=== PATIENT | female | born 1985 | race Caucasian/White ===

== ENCOUNTER 2019-08-18 10:16 | Outpatient (CLI) | payer OTHER, SELFPAY ==
[2019-08-18 10:30] LABS: Basophils Percent Auto 0.6 % (0.2-1.2); Eosinophils Absolute Auto 0.4 K/mm3 (0-0.3); Eosinophils Percent Auto 6.4 % (0-4.4); Hematocrit 37.3 % (37.0-47.0); Hemoglobin 11.8 g/dL (12.0-15.0); Immature Granulocyte Absolute 0.02 K/mm3 (0.00-0.031); Immature Granulocyte Percent A 0.3 % (0-0.5); Lymphocytes Absolute Auto 1.83 K/mm3 (0.9-3.2); Lymphocytes Percent Auto 29.2 % (18.3-44.2); Mean Corpuscular HGB Conc 31.6 g/dl (32-36); Mean Corpuscular Hemoglobin 28.6 pg (26-34); Mean Corpuscular Volume 90.5 fl (80-100); Mean Platelet Volume 9.9 fl (7.4-10.4); Monocytes Absolute Auto 0.6 K/mm3 (0.1-0.6); Monocytes Percent Auto 9.4 % (2.6-8.5); Neutrophils Absolute Auto 3.4 K/mm3 (1.3-6.7); Neutrophils Percent Auto 54.1 % (45.5-73.1); Platelet Count Result 232 k/mm3 (150-375); Red Blood Count 4.12 M/mm3 (4.2-5.4); Red Cell Distribution Width 12.3 % (11.5-14.5); White Blood Count 6.3 K/mm3 (4.5-10.0)
[2019-08-18 15:23] LABS: Iron 109 ug/dL (37-170)
[2019-08-18 15:32] LABS: Percent Iron Saturation 26 % (20-50)
[2019-08-18 17:10] LABS: Ferritin 5.92 ng/mL (6.24-137)
== END 2019-08-18 10:17 | disposition home or self-care (01) ==
LOC: ANHLAB 10:17
PROVIDERS: Visit Provider Internal Medicine Hematology & Oncology
DX: D50.9 Iron deficiency anemia, unspecified (principal)
CPT/HCPCS: 36415; 82728; 83540; 83550; 85025

== ENCOUNTER 2020-02-03 12:16 | Outpatient (NON) | payer OTHER, SELFPAY ==
[2020-02-04 22:36] LABS: SARS-CoV-2 RNA PCR Negative
== END 2020-02-03 12:17 ==
PROVIDERS: Visit Provider Student in an Organized Health Care Education/Training Program
DX: Z20.828 Contact with and (suspected) exposure to other viral communicable diseases (principal)
CPT/HCPCS: 87635; C9803; U0003

== ENCOUNTER 2020-03-01 14:29 | Outpatient (CLI) | payer OTHER, SELFPAY ==
[2020-03-01 14:43] LABS: Basophils Percent Auto 0.4 % (0.2-1.2); Eosinophils Absolute Auto 0.3 K/mm3 (0-0.3); Eosinophils Percent Auto 3.4 % (0-4.4); Hematocrit 40.4 % (37.0-47.0); Hemoglobin 13.2 g/dL (12.0-15.0); Immature Granulocyte Absolute 0.03 K/mm3 (0.00-0.031); Immature Granulocyte Percent A 0.4 % (0-0.5); Lymphocytes Absolute Auto 2.02 K/mm3 (0.9-3.2); Lymphocytes Percent Auto 27.7 % (18.3-44.2); Mean Corpuscular HGB Conc 32.7 g/dl (32-36); Mean Corpuscular Volume 94.8 fl (80-100); Mean Platelet Volume 9.9 fl (7.4-10.4); Monocytes Absolute Auto 0.6 K/mm3 (0.1-0.6); Neutrophils Absolute Auto 4.4 K/mm3 (1.3-6.7); Neutrophils Percent Auto 60.1 % (45.5-73.1); Platelet Count Result 217 k/mm3 (150-375); Red Blood Count 4.26 M/mm3 (4.2-5.4); Red Cell Distribution Width 11.8 % (11.5-14.5); White Blood Count 7.3 K/mm3 (4.5-10.0)
[2020-03-01 17:30] LABS: Iron 47 ug/dL (37-170)
[2020-03-01 17:33] LABS: Anion Gap 7 mmol/L (8-16); Blood Urea Nitrogen 6 mg/dL (7-17); Calcium 9.4 mg/dL (8.4-10.2); Carbon Dioxide 29 mmol/L (22-30); Chloride 102 mmol/L (98-107); Estimated Glomerular Filt Rate > 60; Glucose 182 mg/dL (65-105); Potassium 4.6 mmol/L (3.4-5.0); Sodium 138 mmol/L (137-145)
[2020-03-01 17:43] LABS: Percent Iron Saturation 13 % (20-50)
[2020-03-01 18:40] LABS: Folic Acid 12.8 ng/mL (2.76->20)
== END 2020-03-01 14:30 | disposition home or self-care (01) ==
PROVIDERS: Visit Provider Internal Medicine Hematology & Oncology
DX: D50.9 Iron deficiency anemia, unspecified (principal)
CPT/HCPCS: 36415; 80048; 82607; 82728; 82746; 83540; 83550; 85025

== ENCOUNTER 2020-07-02 13:22 | Outpatient (CLI) | payer OTHER, SELFPAY ==
[2020-07-02 13:51] LABS: Basophils Percent Auto 0.4 % (0.2-1.2); Eosinophils Absolute Auto 0.5 K/mm3 (0-0.3); Eosinophils Percent Auto 6.3 % (0-4.4); Hemoglobin 12.7 g/dL (12.0-15.0); Immature Granulocyte Absolute 0.01 K/mm3 (0.00-0.031); Immature Granulocyte Percent A 0.1 % (0-0.5); Lymphocytes Absolute Auto 2.13 K/mm3 (0.9-3.2); Lymphocytes Percent Auto 28.1 % (18.3-44.2); Mean Corpuscular HGB Conc 32.6 g/dl (32-36); Mean Corpuscular Hemoglobin 30.2 pg (26-34); Mean Corpuscular Volume 92.6 fl (80-100); Monocytes Absolute Auto 0.6 K/mm3 (0.1-0.6); Monocytes Percent Auto 7.4 % (2.6-8.5); Neutrophils Absolute Auto 4.4 K/mm3 (1.3-6.7); Neutrophils Percent Auto 57.7 % (45.5-73.1); Platelet Count Result 267 k/mm3 (150-375); Red Blood Count 4.21 M/mm3 (4.2-5.4); Red Cell Distribution Width 11.9 % (11.5-14.5); White Blood Count 7.6 K/mm3 (4.5-10.0)
[2020-07-02 14:14] LABS: Anion Gap 5 mmol/L (8-16); Blood Urea Nitrogen 9 mg/dL (7-17); Carbon Dioxide 28 mmol/L (22-30); Chloride 106 mmol/L (98-107); Estimated Glomerular Filt Rate > 60; Glucose 160 mg/dL (65-105); Potassium 4.5 mmol/L (3.4-5.0); Sodium 139 mmol/L (137-145)
[2020-07-02 16:17] LABS: Iron 44 ug/dL (37-170)
[2020-07-02 16:36] LABS: Percent Iron Saturation 12 % (20-50)
[2020-07-02 17:06] LABS: Ferritin 6.14 ng/mL (6.24-137)
== END 2020-07-02 13:23 | disposition home or self-care (01) ==
PROVIDERS: Visit Provider Internal Medicine Hematology & Oncology
DX: D50.9 Iron deficiency anemia, unspecified (principal)
CPT/HCPCS: 36415; 80048; 82728; 83540; 83550; 85025

== ENCOUNTER → 2020-09-21 13:01 | Outpatient (CLI) | payer OTHER, SELFPAY ==
--- NOTE | ~2020-09-21 | US_ITS ---
EXAMINATION: US pelvic complete DATE: 09/21/2020 13:47 INDICATION: Pelvic pain and cramping. History of polycystic ovarian syndrome. Comparison:No prior studies for comparison. TECHNIQUE: Multiple transabdominal and endovaginal sonographic images of the pelvis performed. FINDINGS: The uterus measures 11.2 x 3.8 x 5.9 cm. There is an IUD in the endometrium. The endometria l complex measures 3 mm. The right ovary measures 2.9 x 1.7 x 2.6 cm and the left ovary measures 3.8 x 2.6 x 3.4 cm. There ar e small follicles in each ovary. Normal doppler signal in both ovaries. There is no free fluid in the pelvis. There are no abnormal masses seen on either side. IMPRESSION: 1. Unremarkable pelvic ultrasound. IUD in expected position. Reviewed, dictated and finalized at location B.
== END ==
PROVIDERS: PCP Student in an Organized Health Care Education/Training Program; Visit Provider Obstetrics & Gynecology Gynecology
DX: R10.2 Pelvic and perineal pain (principal); Z97.5 Presence of (intrauterine) contraceptive device
CPT/HCPCS: 76856

== ENCOUNTER → 2020-11-19 11:54 | Outpatient (CLI) | payer OTHER, SELFPAY ==
--- NOTE | ~2020-11-19 | US_ITS ---
EXAMINATION: US breast RT limited HISTORY: Palpable lump at the 6:00 location of the right breast TECHNIQUE: Targeted right breast ultrasound is performed. FINDINGS: There is no evidence of focal abnormal cystic or solid mass in the vicinity of the reported palpable abnormality of concern. IMPRESSION: No specific sonographic correlate is identified for the reported palpable abnormality of concern. Fur ther evaluation at this time should be based on clinical assessment. Continued follow-up physical exa mination is recommended. BI-RADS Category 1: Negative Reviewed, dictated and finalized at location A. IMPRESSION: No specific sonographic correlate is identified for the reported palpable abnor mality of concern. Further evaluation at this time should be based on clinical assessment. Continued follow-up physical examination is recommended. BI-RADS Category 1: Negative
== END ==
PROVIDERS: Visit Provider Nurse Practitioner
DX: N63.15 Unspecified lump in the right breast, overlapping quadrants (principal)
CPT/HCPCS: 76642

== ENCOUNTER → 2020-11-26 03:57 | Outpatient (CLI) | payer OTHER, SELFPAY ==
[2020-11-26 18:23] LABS: SARS-CoV-2 RNA PCR Negative
== END ==
PROVIDERS: PCP Student in an Organized Health Care Education/Training Program; Visit Provider Student in an Organized Health Care Education/Training Program
DX: R53.83 Other fatigue (principal); R07.89 Other chest pain; R07.0 Pain in throat; Z20.822 Contact with and (suspected) exposure to COVID-19
CPT/HCPCS: C9803; U0003; U0005

== ENCOUNTER 2020-12-06 09:38 | Emergency (ER) | payer OTHER, SELFPAY ==
--- NOTE | ~2020-12-06 | XR_ITS ---
EXAMINATION: XR chest 2V DATE: 12/06/2020 10:40 INDICATION: Cough and congestion. TECHNIQUE: PA and lateral views of the chest were obtained. COMPARISON: None FINDINGS: The lungs are clear with no focal airspace opacities, pulmonary edema, pleural effusion or pneumothor ax. The cardiomediastinal silhouette is normal. Mild upper thoracic levocurvature. Surgical clips in the upper abdomen. IMPRESSION: 1. No acute cardiopulmonary disease. Reviewed, dictated and finalized at location A.
[2020-12-06 09:48] VITALS: BP 104/71; PULSE 94; RESP 18; TEMP 36.5; O2SAT 99
--- NOTE | 2020-12-06 10:23 | ED.URI ---
HPI - URI/Sore Throat General Chief Complaint: Upper Respiratory Infection Stated Complaint: Cough,Congestion Time Seen by Provider: 12/06/20 10:23 Source: patient and RN notes reviewed Mode of arrival: ambulatory Limitations: no limitations History of Present Illness HPI Narrative: 35-year-old female presents to the [facility] with complaints of cough and congestion. Patient reports that Sunday she started with a sore throat. Has been taking Tylenol Cold and flu. Has been using her albuterol. Minimal to no relief. Patient states that November 21 her son was sick, did test negative at that time and was on azithromycin and prednisone. Related Data Home Medications Medication Instructions Recorded Confirmed acetaminophen [Tylenol] 325 mg PO ONCE PRN 09/12/19 07/22/20 albuterol sulfate 1 inh INHALATION QID PRN 09/12/19 07/22/20 metformin 1,000 mg PO BID 09/12/19 07/22/20 ynynoujg-lil-[id number] fumarate 9 mg PO DAILY 09/12/19 07/22/20 [Multi Vitamin] Allergies Allergy/AdvReac Type Severity Reaction Status Date / Time No Known Allergies Allergy Verified 07/15/20 14:11 Review of Systems Review of Systems: All systems reviewed & are unremarkable except as noted in HPI and below Constitutional: Constitutional: Reports no additional constitutional complaints, Denies chills and Denies fever(s) Eyes: Eyes: Reports no additional eye complaints ENT: Reports as per HPI and Reports sore throat (Sunday and Sunday) Cardiovascular: Cardiovascular: Reports no additional cardiovascular complaints and Denies chest pain Respiratory: Respiratory: Reports as per HPI, Denies chest congestion, Reports cough, Denies dyspnea and Denies wheezing Gastrointestinal: Gastrointestinal: Reports no additional gastrointestinal complaints, Denies abdominal pain, Denies nausea and Denies vomiting Genitourinary: Genitourinary: Reports no additional female genitourinary complaints Musculoskeletal: Musculoskeletal: Reports no additional musculoskeletal complaints Integumentary/Breasts: Skin/Breast: Reports system reviewed and no additional complaints, except as docu Neurologic: Reports system reviewed and no additional complaints, except as documented Psychiatric: Psychiatric: Reports no additional psychiatric complaints Allergic/Immunologic: Allergic/Immunologic: Reports no additional allergic/immunologic complaints PMFSH Past Medical History Medical History Asthma Diabetes Surgical History Surgical History H/O gastric bypass 2014 Comments At the time of my signature, I reviewed and agree with the nursing past medical, surgical, social, and family history. There is no relevant family history pertinent to the patient complaint. Exam Const: General: healthy appearing, no acute distress and alert Nutritional Appearance: well nourished and obese Orientation/consciousness: patient oriented x3 Limitations: no limitations HENMT: Head: normal to inspection Ears: external ears normal, TM's normal bilaterally and EAC's normal Eyes: Conjunctivae: conjunctivae normal Pupils: Equal, round and reactive pupils present Neck: Neck: normal visual inspection, no lymphadenopathy and no meningeal signs Chest: Chest palpation & inspection: normal inspection of the chest Resp: Effort & Inspection: normal respiratory effort Auscultation: diminished lung sounds on the right in the lower lung johnson Cardio: Rate: regular rate Rhythm: regular rhythm : General: Yes no CVA tenderness Back/Spine/Pelvis: Back: no CVA tenderness Skin: General skin exam: normal color Rashes: no rashes Wounds: no wounds Neuro: General: patient oriented x3, moves all extremities, no meningeal signs and no focal motor deficits Speech: normal speech Gait exam (Neuro): Normal gait present Course Course Emergency Course: 1120: Reexamined patient. Lungs now clear
[2020-12-06 10:40] VITALS: PULSE 94; RESP 18; O2SAT 99
[2020-12-06] MEDS: ALBUTEROL SULFATE NEB 2.5 MG/3 ML INH INHALATION (10:47)
[2020-12-06] MEDS: IPRATROPIUM BR 0.02% INH SOLN 0.5 MG/2.5 ML VIAL INHALATION (10:49)
[2020-12-06 11:20] VITALS: PULSE 112; RESP 18; O2SAT 97
[2020-12-07 19:51] LABS: SARS-CoV-2 RNA PCR Negative
== END 2020-12-06 11:24 | disposition home or self-care (01) ==
PROVIDERS: Emergency Provider Nurse Practitioner; PCP Student in an Organized Health Care Education/Training Program
DX: J40 Bronchitis, not specified as acute or chronic (principal); E11.9 Type 2 diabetes mellitus without complications; Z20.822 Contact with and (suspected) exposure to COVID-19; Z79.84 Long term (current) use of oral hypoglycemic drugs
CPT/HCPCS: 71046; 87081; 87880; 94640; 99213; C9803; G0463; U0003; U0005

== ENCOUNTER → 2021-04-26 08:19 | Outpatient (CLI) | payer OTHER, SELFPAY ==
[2021-04-26 19:07] LABS: SARS-CoV-2 RNA PCR Positive
== END ==
PROVIDERS: PCP Student in an Organized Health Care Education/Training Program; Visit Provider Student in an Organized Health Care Education/Training Program
DX: U07.1 COVID-19 (principal)
CPT/HCPCS: C9803; U0003; U0005

== ENCOUNTER 2021-06-03 12:34 | Emergency (ER) | payer OTHER, SELFPAY ==
--- NOTE | ~2021-06-03 | XR_ITS ---
EXAMINATION: XR knee LT 3V DATE: 06/03/2021 13:35 INDICATION: Left knee popped. TECHNIQUE: 3 views of left knee were obtained. COMPARISON: None. FINDINGS: Bone alignment is normal. No fracture. Joint spaces are well maintained. There is no knee j oint effusion. IMPRESSION: 1. Normal left knee. Reviewed, dictated and finalized at location A. O TECHNICIAN IMPRESSION: 1. Normal left knee.
[2021-06-03 13:01] VITALS: BP 129/71; PULSE 95; RESP 18; TEMP 36.7; O2SAT 100
--- NOTE | 2021-06-03 14:51 | ED.LOWEXIN ---
HPI - Extremity Injury (Lower) General Chief Complaint: Extremity Injury, Lower <Serena Horvath PA-C - Last Filed: 06/03/21 14:59> Stated Complaint: knee pain <SERGIO Craven Last Filed: 06/03/21 14:59> Time Seen by Provider: 06/03/21 14:17 <SERGIO Craven Last Filed: 06/03/21 14:59> Source: patient <SERGIO Craven Last Filed: 06/03/21 14:59> Mode of arrival: wheelchair <SERGIO Craven Last Filed: 06/03/21 14:59> Limitations: no limitations <SERGIO Craven Last Filed: 06/03/21 14:59> History of Present Illness HPI Narrative: This is a 35-year-old female that presents to the emergency department for left knee pain after an injury a week ago. Reports she was bent down, when she stood up she felt a pop in the left knee. Reports history of previous partial patellar tendon tear in this knee. Reports decreased range of motion due to pain. Denies numbness. <SERGIO Craven Last Filed: 06/03/21 14:59> Related Data Home Medications: Home Medications Medication Instructions Recorded Confirmed acetaminophen [Tylenol] 325 mg PO ONCE PRN 09/12/19 07/22/20 albuterol sulfate 1 inh INHALATION QID PRN 09/12/19 07/22/20 metformin 1,000 mg PO BID 09/12/19 07/22/20 jpwxwlof-ycc-fnrnsqb fumarate 9 mg PO DAILY 09/12/19 07/22/20 [Multi Vitamin] semaglutide 0.25 mg SUBCUT WEEKLY 06/02/21 <SERGIO Craven Last Filed: 06/03/21 14:59> Allergies/Adverse Reactions: Allergies Allergy/AdvReac Type Severity Reaction Status Date / Time No Known Allergies Allergy Verified 06/02/21 14:34 <SERGIO Craven Last Filed: 06/03/21 14:59> Review of Systems Review of Systems: CONSTITUTIONAL: Denies fever MUSCULOSKELETAL: Reports joint pain, and myalgia. NEUROLOGIC: Denies numbness <Serena Horvath PA-C - Last Filed: 06/03/21 14:59> All systems reviewed & are unremarkable except as noted in HPI and below <Serena Horvath PA-C - Last Filed: 06/03/21 14:59> PMFSH Past Medical History Medical History: Medical History (Updated 06/03/21 @ 14:57 by Serena Horvath PA-C) Asthma Diabetes <Serena Horvath PA-C - Last Filed: 06/03/21 14:59> Surgical History Surgical History: Surgical History (Updated 06/02/21 @ 14:47 by Danika Fernandez) H/O gastric bypass 2014 H/O oral surgery (~2017) History of 2010 and 2015 History of cholecystectomy 2014 <Serena Horvath PA-C - Last Filed: 06/03/21 14:59> Family History Family History: Family History (Updated 06/02/21 @ 14:46 by Danika Fernandez) Other Diabetes mellitus Hypertension <Serena Horvath PA-C - Last Filed: 06/03/21 14:59> Social History Social History: Social History (Updated 06/02/21 @ 14:46 by Danika Fernandez) Smoking status: Never smoker Alcohol intake: never Substance use: never Substance use type: does not use <Serena Horvath PA-C - Last Filed: 06/03/21 14:59> Exam Narrative: GENERAL: Well-appearing, well-nourished, and in no acute distress. HEAD: Normocephalic, atraumatic. EYES: EOMI. CHEST: No respiratory distress. HEART: Regular rate EXTREMITIES: Decreased active ROM in the left knee due to pain. No edema, erythema or obvious deformity. Patient able to perform straight leg raise. DP pulses obtained by doppler SKIN: Warm, dry, no rash. NEURO: No focal deficits. Alert and oriented x3. PSYCH: Normal mood and affect <Serena Horvath PA-C - Last Filed: 06/03/21 14:59> Course FOOD SERVICE EMPLOYEE/PA Physician Supervision I did not see this patient nor was the care plan discussed with me. I was available for evaluation and consultation, I agree with the documentation <Juan Daniel Camejo MD - Last Filed: 06/03/21 18:11> Consultations Consultation #1: I did speak with Dr. Bolton about patient and work-up who does not recommend any further imaging at this time. Agrees with Jonathan wrap and crutc
[2021-06-03] MEDS: HYDROcodone/acetaminophen (*CRX) 5-325 MG TABLET 1 TAB PO (15:08)
[2021-06-03] MEDS: KETOROLAC (*BKC) 60 MG/2 ML VIAL IM (15:09)
== END 2021-06-03 15:15 | disposition home or self-care (01) ==
PROVIDERS: Emergency Provider Emergency Medicine; PCP Student in an Organized Health Care Education/Training Program
DX: S89.92XA Unspecified injury of left lower leg, initial encounter (principal); J45.909 Unspecified asthma, uncomplicated; E11.9 Type 2 diabetes mellitus without complications; Z79.84 Long term (current) use of oral hypoglycemic drugs; Z98.84 Bariatric surgery status; X50.9XXA Other and unspecified overexertion or strenuous movements or postures, initial encounter
CPT/HCPCS: 73562; 96372; 99283; A9270; J1885

== ENCOUNTER → 2021-06-16 08:53 | Outpatient (CLI) | payer OTHER, SELFPAY ==
--- NOTE | ~2021-06-16 | MR_ITS ---
EXAMINATION: MR knee LT wo con DATE: 06/16/2021 09:30 INDICATION: Internal derangement of the left knee TECHNIQUE: Magnetic resonance imaging (MRI) of the left knee was performed without intravenous contra st. Sequences included coronal PD-weighted FSE, coronal PD-weighted FS FSE, sagittal T2-weighted FSE , sagittal PD-weighted FS FSE and axial PD weighted fat saturated FSE. COMPARISON: None. FINDINGS: Medial compartment: Medial meniscus is normal. Slight partial-thickness cartilage loss with minimal chondral surface irre gularity along the medial tibial plateau and anterior weightbearing medial femoral condyle. Lateral compartment: Lateral meniscus is normal. Articular cartilage is normal. Patellofemoral compartment: Minimal chondral surface irregularity along the medial patellar facet. Remaining articular cartilage is normal. Ligaments and tendons: Anterior and posterior cruciate ligaments are normal. The medial collateral ligament and fibular olivia ateral ligament complex are normal. The extensor mechanism is normal. The visualized medial and later al hamstring tendons as well as the iliotibial band are normal. Fluid: Physiologic amount of fluid in the joint space. No loose osteochondral bodies identified. Osseous/other: Normal marrow signal. No fracture or abnormal marrow replacing process. There is edema in the infrapa tellar fat pad along the inferolateral margin of the patella. There is also mild edema in the deep bullard prapatellar fat pad. IMPRESSION: 1. Edema in the deep suprapatellar as well as the infrapatellar fat pads which could be related to ei ther fat pad impingement syndrome or direct soft tissue contusion in the setting of prior trauma. 2. 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 Reviewed, dictated and finalized at location A. IMPRESSION: 1. Edema in the deep suprapatellar as well as the infrapatellar fat pads which could be related to either fat pad impingement syndrome or direct soft tissue c ontusion in the setting of prior trauma. 2. 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
== END ==
PROVIDERS: PCP Student in an Organized Health Care Education/Training Program; Visit Provider Orthopaedic Surgery
DX: M23.92 Unspecified internal derangement of left knee (principal)
CPT/HCPCS: 73721

== ENCOUNTER 2021-08-23 10:42 | Emergency (ER) | payer OTHER, SELFPAY ==
[2021-08-23 10:53] VITALS: BP 113/74; PULSE 103; RESP 16; TEMP 37.7; O2SAT 99
--- NOTE | 2021-08-23 10:53 | ED.URI ---
HPI - URI/Sore Throat General Chief Complaint: Upper Respiratory Infection Stated Complaint: Fever,Cough,Congestion Source: patient and RN notes reviewed Mode of arrival: ambulatory Limitations: no limitations History of Present Illness HPI Narrative: 35-year-old female presented for complaint of cough, fever of 102 this morning, and mild sinus congestion. She states I think I have the flu. 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 She denies sick contacts. She has been vaccinated for the flu, she is not boosted for COVID, however she had COVID 02/20/2020 and 04/21/2021. She denies associated nausea, vomiting, diarrhea, shortness of breath, wheezing. She took Tylenol this morning for her fever. MD elicited complaint: cough Related Data Home Medications Medication Instructions Recorded Confirmed multivitamin with minerals-iron 9 mg PO DAILY 09/12/19 08/23/21 fumarate 9 mg iron/15 mL oral liquid (Multi Vitamin) metformin 1,000 mg tablet 1,000 mg PO BID 06/08/21 08/23/21 atorvastatin 20 mg tablet 20 tablet PO DAILY 08/23/21 08/23/21 cyanocobalamin (vitamin B-12) 1 ml IM WEEKLY 08/23/21 08/23/21 1,000 mcg/mL injection solution fluticasone furoate 200 1 ea inhalation DAILY 08/23/21 08/23/21 mcg-vilanterol 25 mcg/dose inhalation powder (Breo Ellipta) semaglutide (Ozempic) 0.5 ea subcut WEEKLY 08/23/21 08/23/21 Allergies Allergy/AdvReac Type Severity Reaction Status Date / Time No Known Allergies Allergy Verified 08/23/21 10:51 Review of Systems Review of Systems: CONSTITUTIONAL: Endorses malaise, chills, sweats, fever EYES: Denies visual changes, redness, or discharge ENT: Denies sinus pain, otalgia, sore throat CARDIOVASCULAR: Denies chest pain, palpitations, edema RESPIRATORY: Denies dyspnea GASTROINTESTINAL: Denies abdominal pain, nausea, vomiting, diarrhea SKIN: Denies rash or itching MUSCULOSKELETAL: Endorses myalgia NEUROLOGIC: Endorses headache PMFSH Past Medical History Medical History Asthma Diabetes Sleep apnea Surgical History Surgical History H/O gastric bypass 2014 H/O oral surgery (~2017) History of 2010 and 2015 History of cholecystectomy 2014 Family History Family History Other Diabetes mellitus Hypertension Social History Social History Smoking status: Never smoker Alcohol intake: never Substance use: never Substance use type: does not use Exam Narrative: GENERAL: Ill-appearing HEAD: Normocephalic EYES: conjunctivae clear ENT: Mucous membranes moist. TM pearly phoenix with normal light reflex bilaterally; no tragal tenderness. Oropharynx erythematous without lesions or exudate, no drooling, no hoarseness, no trismus, uvula midline. NECK: Supple. No lymphadenopathy CHEST: Clear to auscultation, breath sounds equal. No respiratory distress, speaks in full sentences. HEART: Regular rate and rhythm. No murmur heard. SKIN: Warm, dry, no rash. NEURO: Alert and oriented x3. PSYCH: Normal mood and affect Course Course Emergency Course: Patient is aware of diagnosis, understands and agrees to treatment plan. Anticipatory guidance given. Patient agrees to follow-up as directed and is aware of reasons to seek care at the emergency department. Portions of this record may have been created with voice recognition software Level of Care: Express Care Visit Vital Signs Vital signs: Vital Signs Temperature 99.9 F H 08/23/21 10:53 Pulse Rate 103 H 08/23/21 10:53 Respiratory Rate 16 08/23/21 10:53 Blood Pressure 113/74 08/23/21 10:53 Pulse Oximetry 99 08/23/21 10:53 Oxygen Delivery Room Air
== END 2021-08-23 11:23 | disposition home or self-care (01) ==
PROVIDERS: Emergency Provider Nurse Practitioner Family; PCP Student in an Organized Health Care Education/Training Program
DX: J06.9 Acute upper respiratory infection, unspecified (principal); J45.909 Unspecified asthma, uncomplicated; E11.9 Type 2 diabetes mellitus without complications; G47.30 Sleep apnea, unspecified; Z98.84 Bariatric surgery status; Z86.16 Personal history of COVID-19
CPT/HCPCS: 87804; 99213; G0463

== ENCOUNTER → 2021-12-14 08:02 | Outpatient (CLI) | payer OTHER, SELFPAY ==
--- NOTE | ~2021-12-14 | MMUS_ITS ---
EXAMINATION: MM diagnostic coco BI w liset, US breast RT limited HISTORY: Intermittent lump at 6:00 with menstrual cycles TECHNIQUE: Bilateral full field and right spot ML, MLO and CC 3-D tomosynthesis images were performed and synthetic 2-D images were generated. CAD analysis was submitted and interpreted. High resolution targeted right breast ultrasound at area of clinical complaint was performed. COMPARISON: 12/20/2020 Limited right breast ultrasound, targeted to 6:00 complaint BREAST PARENCHYMAL COMPOSITION: The breasts are heterogeneously dense, which may obscure small masses . FINDINGS: MAMMOGRAPHIC FINDINGS: No suspicious mass or architectural distortion, malignant calcification, skin thickening or retractio n is detected. ULTRASOUND: Targeted ultrasound at right breast 6:00 at the area of clinical complaint reveals no suspicious mass or shadowing, cyst or other significant sonographic finding. IMPRESSION: 1. No mammographic evidence of malignancy 2. Routine mammographic screening beginning at age 40 is recommended BI-RADS Category 1: Negative Reviewed, dictated and finalized at location A. IMPRESSION: 1. No mammographic evidence of malignancy 2. Routine mammographic screening beginning at age 40 is recommended BI-RADS Category 1: Negative
== END ==
PROVIDERS: PCP Student in an Organized Health Care Education/Training Program; Visit Provider Obstetrics & Gynecology Gynecology
DX: N63.15 Unspecified lump in the right breast, overlapping quadrants (principal)
CPT/HCPCS: 76642; 77062; 77066; G0279

== ENCOUNTER 2023-06-22 13:47 | Outpatient (CLI) | payer OTHER, SELFPAY ==
[2023-06-22 14:05] LABS: Basophils Absolute Auto 0.1 K/mm3 (0.0-0.1); Basophils Percent Auto 0.9 % (0.2-1.2); Eosinophils Absolute Auto 0.7 K/mm3 (0-0.3); Eosinophils Percent Auto 9.6 % (0-4.4); Hematocrit 38.9 % (37.0-47.0); Hemoglobin 12.6 g/dL (12.0-15.0); Immature Granulocyte Absolute 0.02 K/mm3 (0.00-0.031); Immature Granulocyte Percent A 0.3 % (0-0.5); Lymphocytes Absolute Auto 2.49 K/mm3 (0.9-3.2); Lymphocytes Percent Auto 35.7 % (18.3-44.2); Mean Corpuscular HGB Conc 32.4 g/dl (32-36); Mean Corpuscular Hemoglobin 31.4 pg (26-34); Mean Platelet Volume 9.4 fl (7.4-10.4); Monocytes Absolute Auto 0.5 K/mm3 (0.1-0.6); Monocytes Percent Auto 6.9 % (2.6-8.5); Neutrophils Absolute Auto 3.3 K/mm3 (1.3-6.7); Neutrophils Percent Auto 46.6 % (45.5-73.1); Platelet Count Result 240 k/mm3 (150-375); Red Blood Count 4.01 M/mm3 (4.2-5.4); Red Cell Distribution Width 11.9 % (11.5-14.5)
[2023-06-22 16:05] LABS: Iron 40 ug/dL (37-170)
[2023-06-22 16:07] LABS: Folic Acid 9.6 ng/mL (2.76->20)
[2023-06-22 16:14] LABS: Percent Iron Saturation 11 % (20-50)
[2023-06-22 16:51] LABS: Ferritin 7.14 ng/mL (6.24-137)
== END 2023-06-22 13:48 | disposition home or self-care (01) ==
LOC: ANHLAB 13:49
PROVIDERS: PCP Student in an Organized Health Care Education/Training Program; Visit Provider Internal Medicine Hematology & Oncology
DX: D50.9 Iron deficiency anemia, unspecified (principal); E53.8 Deficiency of other specified B group vitamins
CPT/HCPCS: 36415; 82607; 82728; 82746; 83540; 83550; 85025

== ENCOUNTER 2023-06-28 12:55 | Outpatient (CLI) | payer OTHER, SELFPAY ==
--- NOTE | ~2023-06-28 | US_ITS ---
EXAMINATION: US pelvic complete DATE: 06/28/2023 13:15 INDICATION: Abnormal uterine bleeding TECHNIQUE: Multiple transabdominal sonographic images of the pelvis were obtained. COMPARISON: 09/21/2020 FINDINGS: The uterus measures 7.6 x 4.3 x 5.3 cm. An IUD is present in expected position. The endomet rial complex measures 4 mm. The right ovary measures 2.4 x 2.1 x 2.7 cm. The left ovary measures 1.8 x 1.1 x 1.8 cm. There is normal vascular flow in the ovaries. There is no free fluid in the pelvis. IMPRESSION: 1. No sonographic correlate for the patient's symptoms. Reviewed, dictated and finalized at location F.
== END 2023-06-28 12:56 ==
LOC: MICIMG 12:56
PROVIDERS: PCP Nurse Practitioner; Visit Provider Nurse Practitioner
DX: N93.8 Other specified abnormal uterine and vaginal bleeding (principal)
CPT/HCPCS: 76856

== ENCOUNTER 2023-07-26 13:31 | Outpatient (CLI) | payer OTHER, SELFPAY ==
[2023-07-26 14:33] LABS: Anion Gap 4 mmol/L (4-12); Blood Urea Nitrogen 11 mg/dL (7-17); Calcium 9.5 mg/dL (8.4-10.2); Carbon Dioxide 28 mmol/L (22-30); Chloride 105 mmol/L (98-107); Estimated Glomerular Filt Rate > 60; Glucose 100 mg/dL (65-110); Potassium 4.1 mmol/L (3.4-5.0); Sodium 137 mmol/L (137-145)
== END 2023-07-26 13:32 | disposition home or self-care (01) ==
LOC: ANHSURGERY 13:35
PROVIDERS: Anesthesiology; PCP Student in an Organized Health Care Education/Training Program; Visit Provider Obstetrics & Gynecology Gynecology
DX: E11.9 Type 2 diabetes mellitus without complications (principal); Z01.818 Encounter for other preprocedural examination
CPT/HCPCS: 36415; 80048

== ENCOUNTER 2023-07-30 03:14 | Day surgery (SDC) | payer OTHER, SELFPAY ==
[2023-07-23 10:59] VITALS: BMI 30.7
--- NOTE | 2023-07-23 11:06 | PC.NURSE ---
Report to the Outpatient Waiting Room, entrance under the green pavilion located off [facility], at time 10:00 on date 07/30/23. Planned Procedure Time: 12:00. Time changes happen often and if your time is changed the preop area will call you the afternoon before. - You and your visitor will be asked to self-screen and do not enter if you have any COVID symptoms. - A mask is optional within the hospital at this time. Patients may have clear liquids (water, carbonated beverages, clear teas, apple juice) until 3 hours prior to surgery (9:00) with a maximum of 20 ounces. - No food from midnight until time of surgery Take the following medications with a SIP of water the morning of surgery: INHALER DO NOT STOP ANY OF YOUR OTHER PRESCRIPTION MEDICATIONS PRIOR TO SURGERY ?EXCEPT THE FOLLOWING Medications to discontinue per physician: VITAMINS/SUPPLEMENTS Date to take last dose: 07/26/23 Please no make-up, nail ukrainian, hairspray, perfume, deodorant, or body powder the day of surgery. No jewelry (including any body piercings) or valuables the day of surgery, leave them at home. Please take a shower or bath the night before, or the morning of, surgery with an antibacterial soap. Wear comfortable, loose fitting clothing. - Jewelry must be removed prior to entering the operating room. Rings and piercings that are not removed may be cut off. - The hospital will not accept responsibility for valuables. - Please leave all valuables, including medications, at home the day of surgery. If you are going home after surgery, a licensed milk tanker driver must drive you home. - NO public transportation without another adult if you receive anesthesia. - We recommend that an adult stay with you for 24 hours following discharge. - We also recommend that you do not drive, make important decision, drink alcoholic beverages, or take any drugs that were not prescribed by your health care provider for at least 24 hours after your discharge time. Follow any additional instructions given to you from your surgeon. If you or anyone in your household have experienced Covid symptoms in the past week, please notify your surgeon or the nurse liaison at the phone number below for possible testing. Telephone instructions given to MATT DUNLAP and asked if any additional questions and then verbalized understanding. Patient advised to call surgeon office or pre surgery nurse liaison [phone] if any additional questions.
--- NOTE | 2023-07-30 07:26 | WPDHPUPDATE1 ---
History and Physical Update Update Date/Time: 07/30/23 07:26 History and Physical has been reviewed, including an updated exam of the patient. There are NO changes in the patient's condition. Risks, benefits, and alternatives have been discussed and questions answered. Patient agrees to proceed with procedure.
--- NOTE | 2023-07-30 07:27 | PM.HPGS ---
History of Present Illness History of Present Illness Consent: Risks, benefits, and alternatives have been discussed and questions answered. Patient agrees to proceed with procedure. Chief complaint: abnormal uterine bleeding Narrative: Abdirizak Bhardwaj is a 37 year old female with irregular and heavy cycles. This has been slowly changing over past several years. The patient does have a ParaGard IUD in place and by ultrasound is in normal location. Pelvic ultrasound was otherwise normal. It was recommended to undergo D&C hysteroscopy. Risks of infection, bleeding, perforation, and possible pathology are reviewed. Patient voices understanding and agrees to proceed. Review of Systems Review of Systems: not repeated day of surgery; patient states no changes in status [facility] Past Medical History Medical History (Updated 07/30/23 @ 07:30 by Shannon Maza MD) Asthma Diabetes Elevated cholesterol History of PCOS Sleep apnea Surgical History Surgical History (Updated 07/30/23 @ 07:29 by Shannon Maza MD) H/O gastric bypass 2014 H/O oral surgery (~2016) History of 2010 and 2015 History of cholecystectomy 2014 History of left knee surgery x2 Family History Family History Other Diabetes mellitus Hypertension Social History Social History Smoking status: Never smoker Alcohol intake: never Substance use: never Substance use type: does not use Living arrangements: with family Spiritual care concerns: No Meds Home Medications and Allergies Home Medications Medication Instructions Recorded Confirmed Type multivitamin with minerals-iron 9 mg PO DAILY 09/12/19 07/23/23 History fumarate 9 mg iron/15 mL oral liquid (Multi Vitamin) metformin 1,000 mg tablet 1,000 mg PO BID 06/08/21 07/23/23 History cyanocobalamin (vitamin B-12) 1 ml IM [id number] 08/23/21 07/23/23 History 1,000 mcg/mL injection solution fluticasone furoate 200 1 ea inhalation DAILY 08/23/21 07/23/23 History mcg-vilanterol 25 mcg/dose inhalation powder (Breo Ellipta) semaglutide 0.25 mg or 0.5 mg (2 0.5 ea subcut WEEKLY 08/23/21 07/23/23 History mg/1.5 mL) subcutaneous pen injector (Ozempic) Allergies Allergy/AdvReac Type Severity Reaction Status Date / Time No Known Allergies Allergy Verified 07/23/23 10:57 Assessment and Plan Assessment and plan (1) Abnormal uterine bleeding: Code(s): N93.9 - Abnormal uterine and vaginal bleeding, unspecified Status: Acute Assessment and Plan: plan to proceed with D&C hysteroscopy
[2023-07-30 10:31] VITALS: BP 117/69; PULSE 91; RESP 16; TEMP 36.1; O2SAT 99
[2023-07-30] MEDS: LACTATED RINGERS 1,000 ML 30 ML IV CONT (10:55)
[2023-07-30] MEDS: ACETAMINOPHEN 500 MG TABLET 1000 MG PO (11:00)
[2023-07-30 11:05] LABS: Glucose Point of Care 89 mg/dl (65-105)
--- NOTE | 2023-07-30 11:11 | WPDANESEPPF ---
Anes - Initial Pre Proc Eval Procedure: Operation Date: 07/30/23 12:00 Proposed Procedures p Hysteroscopy Dilation and Curettage - Shannon Maza MD Date/Time: 07/30/23 11:11 Surgeon: Shannon Maza MD Pre Op Diagnosis: abnormal uterine bleeding Patient Data Age: 37 Gender: F Height: 1.68 m Weight: 85 kg Last Vital Signs Temp 36.1 C L 07/30/23 10:31 Pulse 91 07/30/23 10:31 Resp 16 07/30/23 10:31 BP 117/69 07/30/23 10:31 Pulse Ox 99 07/30/23 10:31 O2 Del Method Room Air 07/30/23 10:31 Allergies Allergy/AdvReac Type Severity Reaction Status Date / Time No Known Allergies Allergy Verified 07/30/23 10:43 Home Medications Medication Instructions Recorded Confirmed Type multivitamin with minerals-iron 9 mg PO DAILY 09/12/19 07/30/23 History fumarate 9 mg iron/15 mL oral liquid (Multi Vitamin) metformin 1,000 mg tablet 1,000 mg PO BID 06/08/21 07/30/23 History cyanocobalamin (vitamin B-12) 1 ml IM [id number] 08/23/21 07/30/23 History 1,000 mcg/mL injection solution fluticasone furoate 200 1 ea inhalation DAILY 08/23/21 07/30/23 History mcg-vilanterol 25 mcg/dose inhalation powder (Breo Ellipta) semaglutide 0.25 mg or 0.5 mg (2 0.5 ea subcut WEEKLY 08/23/21 07/30/23 History mg/1.5 mL) subcutaneous pen injector (Ozempic) Laboratory Tests 07/30/23 10:59 POC Capillary Glucose 89 mg/dl (65-105) Patient hx anesthesia problems: none Family hx anesthesia problems: none Results Review: All pre-operative results and documents have been reviewed as part of the pre-operative evaluation. [facility], [facility] Past Medical History Medical History Asthma Diabetes Elevated cholesterol History of PCOS Sleep apnea Surgical History Surgical History H/O gastric bypass 2014 H/O oral surgery (~2017) History of 2010 and 2015 History of cholecystectomy 2014 History of left knee surgery x2 Family History Family History Other Diabetes mellitus Hypertension Social History Social History Smoking status: Never smoker Alcohol intake: never Substance use: never Substance use type: does not use Living arrangements: with family Spiritual care concerns: No Anes - Eval Final PreProcedure Day of Procedure 07/30/23 11:11 Patient weight: overweight Heart: regular rate and rhythm Lungs: clear to auscultation Airway: Mallampati scale class II Neurological: alert and oriented Last oral intake: >/= 8 hours ASA classification: III Emergent: no Anesthetic plan: proceed Anesthesia type and monitoring: general GIVS and standard monitoring Results Review: All pre-operative results and documents have been reviewed as part of the pre-operative evaluation. Informed Consent: The patient's anesthetic plan and its attendant risks and benefits were discussed with the patient/family/POA. Questions were solicited and answers provided to the satisfaction of the patient/family/POA.
[2023-07-30] MEDS: KETOROLAC 30 MG/ML VIAL (*BKC) IV PUSH (11:56)
--- NOTE | 2023-07-30 12:06 | W.PM.PROC2 ---
Procedure Note - Detailed Date of Procedure 07/30/23 Pre-op Diagnosis abnormal uterine bleeding Post-op Diagnosis Same Procedure Performed hysteroscopy with D&C Surgeon Shannon Maza MD Anesthesia MAC Findings uterus sounds to 8cm endometrium appears grossly normal IUD in proper location Description of Procedure The patient is taken to the operating room and placed under anesthesia in the dorsal lithotomy position. She was prepped draped usual sterile fashion. [place] speculum was placed in the vagina and the cervix grasped on the anterior lip with a tenaculum. The uterus is sounded to 8cm. The diagnostic hysteroscope is placed and with no abnormalities noted it is removed. The sharp OO curette is used to curette the endometrium until a good uterine cry was noted in all areas. Minimal material was obtained consistent with the atrophic appearance. All instruments are removed. Sponge, needle, and instrument counts are correct per the OR staff. Patient was awakened from anesthesia and taken to recovery in stable condition. Estimated Blood Loss 5 Drains No Packing No Pathology Yes ( Endometrial curettings) Complications No immediate complications Condition Stable Disposition PACU
[2023-07-30 12:08] VITALS: BP 88/57; PULSE 91; RESP 12; O2SAT 95
[2023-07-30 12:20] VITALS: BP 91/59; PULSE 90; O2SAT 95
[2023-07-30 12:21] LABS: Glucose Point of Care 80 mg/dl (65-105)
[2023-07-30 12:50] VITALS: BP 93/60; PULSE 78; O2SAT 100
[2023-07-30 13:20] VITALS: BP 94/60; PULSE 74
== END 2023-07-30 13:49 | disposition home or self-care (01) ==
PROVIDERS: PCP Student in an Organized Health Care Education/Training Program; Visit Provider Obstetrics & Gynecology Gynecology
PROC: 0U5B8ZZ Destruction of Endometrium, Via Natural or Artificial Opening Endoscopic (ICD-10-PCS; CPT 58563; principal; 2023-07-30 12:00)
DX: N85.8 Other specified noninflammatory disorders of uterus (principal); N93.9 Abnormal uterine and vaginal bleeding, unspecified; J45.909 Unspecified asthma, uncomplicated; E11.9 Type 2 diabetes mellitus without complications; E78.00 Pure hypercholesterolemia, unspecified; G47.30 Sleep apnea, unspecified; Z79.84 Long term (current) use of oral hypoglycemic drugs; Z79.85 Long-term (current) use of injectable non-insulin antidiabetic drugs; Z98.890 Other specified postprocedural states; Z98.84 Bariatric surgery status; Z87.42 Personal history of other diseases of the female genital tract
CPT/HCPCS: 58558; 36415; 80048; 82948; 88305; A9270; J1885; J2250; J2405; J2704; J3010; J7120

== ENCOUNTER 2023-10-10 10:12 | Outpatient (CLI) | payer OTHER, SELFPAY ==
[2023-10-10 10:34] LABS: Hematocrit 37.4 % (37.0-47.0); Mean Corpuscular HGB Conc 32.1 g/dl (32-36); Mean Corpuscular Hemoglobin 29.6 pg (26-34); Mean Corpuscular Volume 92.1 fl (80-100); Mean Platelet Volume 9.8 fl (7.4-10.4); Platelet Count Result 228 k/mm3 (150-375); Red Blood Count 4.06 M/mm3 (4.2-5.4); Red Cell Distribution Width 13.3 % (11.5-14.5); White Blood Count 7.5 K/mm3 (4.5-10.0)
[2023-10-10 12:20] LABS: Iron 58 ug/dL (37-170)
[2023-10-10 12:38] LABS: Percent Iron Saturation 14 % (20-50)
[2023-10-10 12:59] LABS: Ferritin 4.76 ng/mL (6.24-137)
[2023-10-10 13:34] LABS: Folic Acid > 20.0 ng/mL (2.76->20)
== END 2023-10-10 10:13 | disposition home or self-care (01) ==
LOC: ANHLAB 10:14
PROVIDERS: PCP Student in an Organized Health Care Education/Training Program; Visit Provider Internal Medicine Hematology & Oncology
DX: D50.9 Iron deficiency anemia, unspecified (principal); E53.8 Deficiency of other specified B group vitamins
CPT/HCPCS: 36415; 82607; 82728; 82746; 83540; 83550; 85027

== ENCOUNTER 2024-02-25 14:59 | Outpatient (CLI) | payer OTHER, SELFPAY ==
[2024-02-25 15:29] LABS: Basophils Percent Auto 0.3 % (0.2-1.2); Eosinophils Absolute Auto 0.2 K/mm3 (0-0.3); Eosinophils Percent Auto 2.2 % (0-4.4); Hematocrit 38.3 % (37.0-47.0); Hemoglobin 12.2 g/dL (12.0-15.0); Immature Granulocyte Absolute 0.02 K/mm3 (0.00-0.031); Immature Granulocyte Percent A 0.2 % (0-0.5); Lymphocytes Percent Auto 37.5 % (18.3-44.2); Mean Corpuscular HGB Conc 31.9 g/dl (32-36); Mean Corpuscular Volume 97.5 fl (80-100); Mean Platelet Volume 9.9 fl (7.4-10.4); Monocytes Absolute Auto 0.5 K/mm3 (0.1-0.6); Neutrophils Absolute Auto 4.7 K/mm3 (1.3-6.7); Neutrophils Percent Auto 53.8 % (45.5-73.1); Platelet Count Result 234 k/mm3 (150-375); Red Blood Count 3.93 M/mm3 (4.2-5.4); Red Cell Distribution Width 11.9 % (11.5-14.5); White Blood Count 8.8 K/mm3 (4.5-10.0)
[2024-02-25 16:13] LABS: Alanine Aminotransferase 33 U/L (6-35); Albumin Level 3.9 g/dL (3.5-5.1); Alkaline Phosphatase 59 U/L (38-126); Anion Gap 7 mmol/L (4-12); Aspartate Amino Transferase 25 U/L (14-36); Bilirubin,Total 0.4 mg/dL (0.2-1.3); Blood Urea Nitrogen 13 mg/dL (7-17); Calcium 8.5 mg/dL (8.4-10.2); Carbon Dioxide 27 mmol/L (22-30); Chloride 103 mmol/L (98-107); Estimated Glomerular Filt Rate > 60; Glucose 120 mg/dL (65-110); Potassium 3.1 mmol/L (3.4-5.0); Sodium 137 mmol/L (137-145)
[2024-02-25 16:37] LABS: Iron 52 ug/dL (37-170)
[2024-02-25 16:46] LABS: Percent Iron Saturation 17 % (20-50)
[2024-02-25 17:06] LABS: Folic Acid 9.3 ng/mL (2.76->20); Vitamin B12 > 1000.0 pg/mL (239-931)
== END 2024-02-25 15:00 | disposition home or self-care (01) ==
LOC: ANHLAB 15:02
PROVIDERS: PCP Student in an Organized Health Care Education/Training Program; Visit Provider Internal Medicine Hematology & Oncology
DX: D50.9 Iron deficiency anemia, unspecified (principal)
CPT/HCPCS: 36415; 80053; 82607; 82728; 82746; 83540; 83550; 85025

== ENCOUNTER 2024-06-27 14:26 | Outpatient (CLI) | payer OTHER, SELFPAY ==
--- OUTSIDE RECORDS SUMMARY | 2024-06-27 14:28 | XMS_ITS | Clinical Summary ---
Author Organization [facility] Address [address] [place] [address] Care Team Providers Care Machine Shop Apprentice Name Role Phone Shan Edward DO Primary Care Provider + Allergies No known active allergies Medications metFORMIN (GLUCOPHAGE) 1,000 mg tablet 04/14/19 19 Active multivitamin (DAILY-SHANNAN) tablet Take 1 Tablet by mouth daily. Active acetaminophen (TYLENOL) 325 mg tablet Take 325 mg by mouth every 4 hours as needed. Active rizatriptan (MAXALT) 10 mg Tablet Take 10 mg by mouth every 2 hours as needed for Migraine may repeat in 2 hours; max dose 30mg in 24 hours . Active albuterol HFA 90 mcg inhaler INHALE 2 PUFFS EVERY 4 TO 6 HOURS NEEDED FOR SHORTNESS OF BREATH OR WHEEZING 11/26/19 20 Active fluticasone furoate-vilanter oL (BREO ELLIPTA) 100-25 mcg/dose Disk with Device Take 1 Puff by inhalation. 11/26/19 20 Active cholecalciferol, vitamin D3, 1,000 unit Take 1,000 Units by mouth. 12/19/19 19 Active budesonide (PULMICORT RESPULE) 0.5 mg/2 mL Suspension for Nebulization Administer 0.5 mg in each nostril 2 times daily. 06/19/19 21 Active Ozempic 0.25 mg or 0.5 mg(2 mg/1.5 mL) Pen Injector INJECT 0.5 MG INTO THE SKIN EVERY 7 DAYS. 07/20/19 22 Active Breztri Aerosphere 160 mcg-9mcg-4.8mcg/ actuation HFA aerosol inhaler Take 2 Puffs by inhalation 2 times daily. 09/06/19 24 Active cyanocobalamin (VITAMIN B-12) 1,000 mcg/mL SolutionIndicati ons:Iron deficiency anemia, unspecified iron deficiency anemia type Inject 1 mL (1,000 mcg) by intramuscular injection every 2 weeks. 2 mL 2 06/04/19 25 Active Syringe with Needle, Disp, (BD Luer-Carlos Syringe) 3 mL 25 x 5/8 SyringeIndicatio ns:Vitamin B12 deficiency (non anemic) USE FOR B12 INJECTIONS EVERY 2 WEEKS Strength: 3 mL 25 x 5/8 2 Each 2 06/04/19 25 Active cyanocobalamin (VITAMIN B-12) 1,000 mcg/mL SolutionIndicati ons:Iron deficiency anemia, unspecified iron deficiency anemia type INJECT 1 ML BY INTRAMUSCULAR INJECTION EVERY 2 WEEKS. 6 mL 2 04/16/19 24 025 Discontin ued(Reord er) Syringe with Needle, Disp, (BD Luer-Carlos Syringe) 3 mL 25 x 5/8 SyringeIndicatio ns:Vitamin B12 deficiency (non anemic) USE FOR B12 INJECTIONS EVERY 2 WEEKS Strength: 3 mL 25 x 5/8 6 Each 5 05/24/19 24 025 Discontin ued(Reord er) Active Problems Problem Noted Date Diagnosed Date Vitamin B12 deficiency (non anemic) 08/11/2021 Iron deficiency anemia 04/23/2018 Encounters Date Type Department Care Team Description 06/18/2024 External Device Data STL ABSTRACTION Provider, Abstract 06/18/2024 External Device Data STL ABSTRACTION Provider, Abstract 06/07/2024 External Device Data ST[facility] ABSTRACTION Provider, Abstract 06/06/2024 External Device Data ST[facility] ABSTRACTION Provider, Abstract 06/03/2024 External Device Data ST[facility] ABSTRACTION Provider, Abstract 06/03/2024 [facility] Oncology and Hematology - Willam [facility] Burton [address] [address] Joe Lopez MD Iron deficiency anemia, unspecified iron deficiency anemia type; Vitamin B12 deficiency (non anemic) 05/21/2024 External Device Data STL ABSTRACTION Provider, Abstract 05/20/2024 External Device Data STL ABSTRACTION Provider, Abstract 04/22/2024 External Device Data STL ABSTRACTION Provider, Abstract from Last 3 Months Family History Medical History Relation Name Comments Diabetes Mother Relation Name Status Comments Mother Alive Social History Tobacco Use Types Packs/Day Years Used Date Smoking Tobacco: Never Smokeless Tobacco: Never Tobacco Cessation:Counseling Given: Not Answered Alcohol Use Standard Drinks/Week Comments No 0 (1 standard drink = 0.6 oz pur e alcohol) Comments No Sex and Gender Information Value Date Recorded Sex Assigned at Not on file 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 Gender Identity Not on file Sexual Orientation Not on file Last Filed Vital Signs Vital Sign Reading Time Taken Comments Blood Pressure 131/74 10/17/2023 2:15 PM CDT Pulse 84 10/17/2023 2:15 PM CDT Temperature 36.9 C (98.4 F) 10/17/2023 2:15 PM CDT Respiratory Rate 16 10/17/2023 2:15 PM CDT Oxygen Saturation 96% 10/17/2023 2:15 PM CDT Inhaled Oxygen Concentration - - Weight 87.5 kg (193 lb) 10/17/2023 2:15 PM CDT Height 167.6 cm (5' 6 ) 09/22/2021 1:02 PM CDT Body Mass Index 31.15 09/22/2021 1:02 PM CDT Plan of Treatment Upcoming Encounters Date Type Department Care Team (Late st Contact Info) Description 06/30/2024 1:00 PM CDT Office Visit [facility] Oncology and Hematology - Willam [address] [facility] [address] [place] [address] Joe Lopez MD [address] [place] [address] Health Maintenance Due Date Last Done Comments DIABETES ANNUAL FOOT EXAM 2004 DIABETES ANNUAL RETINAL EXAM 2004 DIABETES MICROALBUMIN ANNUAL SCREEN 2004 LDL CHOLESTEROL ANNUAL 2004 HEPATITIS B VACCINES (1 of 3 - 19+ 3-dose series) 2005 HPV/Cotest (21-29) 10/06/2007 CERVICAL CANCER SCREENING 2016 HPV/Cotest (30-65) 2016 PAP SMEAR 2016 INFLUENZA VACCINE (#1) 2023 01/01/2019, 2017 Preventative Visit- Commercial 04/02/2024 02/07/2023, 06/22/2017 DIABETES HBA1C Q 6 MONTHS 07/02/20242023, 09/06/2023, 10/26/2022, Additional history exists DTAP/TDAP/TD VACCINES (3 - Td or Tdap) 11/11/2025 11/12/2015, 05/24/2010 HPV VACCINES Aged Out No longer eligi ble based on patient's age to complete this topic Insurance AETNA CHOICE POS II AETNA CHOICE POS II Care Teams Machine Shop Apprentice Relationship Specialty Start Date End Date Shan Edward DO [address] [place] [id number] PCP - General Family Practice 08/17/22
--- OUTSIDE RECORDS SUMMARY | 2024-06-27 14:28 | XMS_ITS | Referral Summary ---
Author Organization [facility] Address [address] [place] [address] Care Team Providers Care Negative Checker Name Role Phone Shan Edward Primary Care Provide r Shannon Maza MD Unavailable [phone] Allergies No known active allergies Medications metFORMIN (GLUCOPHAGE) 1,000 mg tabletIndications: Polycystic Ovarian Syndrome,type 2 diabetes mellitus Take 1 tablet (1,000 mg total) by mouth 2 (two) times a day with meals 04/05/19 21 Active multivitamin tabletIndications: Vitamin Deficiency Prevention Take 1 tablet by mouth nightly Active cyanocobalamin (Vitamin B-12) 1,000 mcg/mL injectionIndicatio ns:Vitamin B12 Deficiency Inject 1,000 mcg under the skin every 14 (fourteen) days 09/04/19 20 Active albuterol HFA (PROVENTIL HFA,VENTOLIN HFA,PROAIR HFA) 90 mcg/actuation inhalerIndications :Acute Asthma Attack Inhale 2 puffs every 4 (four) hours as needed for wheezing or shortness of breath 04/14/19 18 Active atorvastatin (LIPITOR) 10 mg tabletIndications: hyperlipidemia Take 10 mg by mouth nightly Not taking 12/01/19 20 Active copper (PARAGARD) 380 square mm IUD by intrauterine route continuously as needed 03/24/20 16 026 Active rizatriptan CLEARANCE REPRESENTATIVE (MAXALT-CLEARANCE REPRESENTATIVE) 10 mg disintegrating tablet Take 10 mg by mouth as needed for migraine 07/11/19 19 Active Ozempic 0.25 mg or 0.5 mg(2 mg/1.5 mL) pen injector injectionIndicatio ns:type 2 diabetes mellitus Inject 0.5 mg under the skin once a week 07/20/19 22 Active albuterol 2.5 mg /3 mL (0.083 %) nebulizer solutionIndication s:Acute Asthma Attack Take 3 mL (2.5 mg total) by nebulization as needed for wheezing or shortness of breath 01/31/20 22 Active cholecalciferol (VITAMIN D-3) 2000 unit capsuleIndications :Vitamin D Deficiency Take 2,000 Units by mouth every morning Active traMADoL (ULTRAM) 50 mg tabletIndications: Pain Take 50 mg by mouth every 8 (eight) hours as needed for pain Active HYDROcodone-acetam inophen (NORCO) 5-325 mg per tabletIndications: Pain TAKE 1 TABLET EVERY 4-6 HOURS NEEDED FOR PAIN 20 tablet 04/13/19 23 Active Additional Information Patient not taking.Reported on 08/11/2022 BD Luer-Carlos Syringe 3 mL 25 x 5/8 syringe USE FOR B12 INJECTIONS EVERY 2 WEEKS 05/30/19 23 Active nitrofurantoin monohydrate (MACROBID) 100 mg capsule 05/23/19 23 Active fluticasone furoate-vilanteroL (BREO ELLIPTA) 200-25 mcg/dose diskus inhaler Inhale 1 puff daily 02/08/20 22 Active amoxicillin-clavul anate (AUGMENTIN) 875-125 mg per tablet 03/13/20 22 Active Active Problems Problem Noted Date Diagnosed Date Patellar instability of left knee 02/10/2022 Overview (02/10/2022): Added automatically from request for surgery [id number] Impingement syndrome involvi ng patellar fat pad of left knee 10/25/2021 Overview (10/25/2021): Added automatically from request for surgery [id number] Vitamin B12 deficiency (non anemic) 08/11/2021 Acute pain of left knee 07/01/2021 Anemia 07/01/2021 Bronchitis 07/01/2021 Anosmia 06/18/2020 BMI 34.0-34.9,adult 11/26/2019 Mild intermittent asthma without complication Weight gain 11/26/2019 Elevated liver enzymes 12/18/2018 Vitamin D deficiency 12/18/2018 Iron deficiency anemia 03/05/2018 Diabetes mellitus 01/25/2018 Immunizations Immunization Administration Dates Next Due Influenza, Quadrivalent, Spl it, Preservative Free, Intramuscular 01/18/2018,12/12/2015 Influenza, Unspecified 12/17/2019,2018,02/10/2018,12/11 Pneumococcal Polysaccharide PPV23 11/26/2019 Tdap 11/12/2015 Social History Tobacco Use Types Packs/Day Years Used Date Smoking Tobacco: Never Smokeless Tobacco: Never Tobacco Cessation:Counseling Given: Not Answered AUDIT-C Answer Date Recorded Q1: How often do you have a drink containing alc ohol? Monthly or less 03/29/2022 Q2: How many drinks containi ng alcohol do you have on a typical day when you are drinking? 1 or 2 03/29/2022 Q3: How often do you have si x or more drinks on one occasion? Never 03/29/2022 PHQ-2 Answer Date Recorded PHQ-2 Total Score 0 06/07/2020 Personal Safety Answer Date Recorded Getting School Help Needed Not on file 04/01 Comments No Sex and Gender Information Value Date Recorded Sex Assigned at Not on file Legal Sex Female 1:45 PM MUSIC RESEARCHER Gender Identity Not on file Sexual Orientation Not on file Last Filed Vital Signs Vital Sign Reading Time Taken Comments Blood Pressure 111/76 03/29/2022 12:00 PM MUSIC RESEARCHER Pulse 96 03/29/2022 12:05 PM MUSIC RESEARCHER Temperature 36.6 C (97.9 F) 03/29/2022 12:00 PM MUSIC RESEARCHER Respiratory Rate 19 03/29/2022 12:05 PM MUSIC RESEARCHER Oxygen Saturation 96% 03/29/2022 12:05 PM MUSIC RESEARCHER Inhaled Oxygen Concentration - - Weight 78 kg (172 lb) 08/18/2022 12:11 PM CDT Height 167.6 cm (5' 6 ) 08/18/2022 12:11 PM CDT Body Mass Index 27.76 08/18/2022 12:11 PM CDT Plan of Treatment Not on file Medical Devices Implanted Type Area Fisher Purse Seine Device Identifier Shelf Expiration Date Model / Serial / Lot Ar[employer]rex Inc 4.5mm 45mm Self Tap Thread Knee Bicortical Low Profile Post Ar-1365-45 - [id number] Implanted:Qty: 1 on 03/29/2022 by Gallito Aguilar MD at [facility] Left: Tibia Ar[employer] AR-1365-45 / / Ar[employer]rex [employer] Post Fxatn 50mm 4.5mm Loprfl Knee Bicortical Ti St Thread Ar-1365-50 - [id number] Implanted:Qty: 1 on 03/29/2022 by Gallito Aguilar MD at [facility] Left: Tibia [employer] AR-1365-50 / / [employer] Inc Suturetak Tigerwire 3mm 14.5mm 2 Brice Suture Fiberwire [id number] - [id number] Implanted:Qty: 1 on 03/29/2022 by Gallito Aguilar MD at [facility] Left: Tibia [employer] 06/30/2025 AR-1934BCF- 2 / / [id number] Explanted Type Area Fisher Purse Seine Device Identifier Shelf Expiration Date Model / Serial / Lot Ar[employer]rex Inc 4.5mm 47.5mm Self Tap Thread Knee Bicortical Low Profile Post Ar-1365-475 - [id number] Explanted:Qty: 1 on 03/29/2022 at [facility] Left: Tibia [employer] AR-1365-475 / / Insurance [facility] Care Teams Negative Checker Relationship Specialty Start Date End Date Shan Edward DO [address] [place] [id number] PCP - General 11/19/21 Shannon Maza MD [address] [address] Referring Physician Gynecology 02/13/23
--- OUTSIDE RECORDS SUMMARY | 2024-06-27 14:28 | XMS_ITS | Clinical Summary ---
Author Organization [facility] Address [address] [place] [address] Care Team Providers Care Soft Sugar Cutter Name Role Phone Shan Edward Primary Care Provide r Shannon Maza MD Unavailable [phone] Allergies No known active allergies Medications metFORMIN [...] as needed 03/24/20 16 026 Active rizatriptan CABLE TOOL OPERATOR (MAXALT-CABLE TOOL OPERATOR) 10 mg disintegrating tablet Take 10 mg [...] (02/10/2022): Added automatically from request for surgery [id number] Impingement syndrome involvi ng patellar fat pad of left knee 10/25/2021 Overview (10/25/2021): Added automatically from request for surgery [id number] Vitamin B12 deficiency (non anemic) 08/11/2021 Acute [...] 12/17/2019,2018,02/10/2018,12/11 Pneumococcal Polysaccharide PPV23 11/26/2019 Tdap 11/12/2015 Surgical History Surgery Date Site/Laterality Comments WENDY-EN-Y PROCEDURE 04/02/2014 - 04/01/2015 SECTION 04/02/2010 - 04/01/2011 SECTION 04/02/2018 - 04/01/2019 CHOLECYSTECTOMY 04/02/2014 - 04/01/2015 TOOTH EXTRACTION 04/02/2016 - 04/01/2017 KNEE ARTHROSCOPY W/ DEBRIDEMENT 10/31/2021 - 11/30/2021 L eft Medical History Medical History Date Comments Diabetes mellitus (HCC) dxd ~200 6 Sleep apnea Stopped using CP AP machine after gastric bypass URI (upper respiratory infection) 03/2022 finished 10 day course of antibiotic and all sx resolved except rare dry cough. 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 Gender Identity Not on file Sexual Orientation Not on file Obstetrics History Last Filed Vital Signs Vital Sign Reading Time Taken Comments Blood Pressure 111/76 03/29/2022 12:00 PM EQUIPMENT OR MACHINERY CLEANER Pulse 96 03/29/2022 12:05 PM EQUIPMENT OR MACHINERY CLEANER Temperature 36.6 C (97.9 F) 03/29/2022 12:00 PM EQUIPMENT OR MACHINERY CLEANER Respiratory Rate 19 03/29/2022 12:05 PM EQUIPMENT OR MACHINERY CLEANER Oxygen Saturation 96% 03/29/2022 12:05 PM EQUIPMENT OR MACHINERY CLEANER Inhaled Oxygen Concentration - - Weight 78 kg (172 lb) 08/18/2022 12:11 PM CDT Height 167.6 cm (5' 6 ) 08/18/2022 12:11 PM CDT Body Mass Index 27.76 08/18/2022 12:11 PM CDT Plan of Treatment Health Maintenance Due Date Last Done Comments Albumin Creatinine Ratio, Urine 1986 Cervical Cancer Screening 1986 Hemoglobin A1C 1986 Hepatitis C Screening 1986 eGFR 1986 Dilated Eye Exam 1986 Foot Exam 1986 Varicella Vaccines (1 of 2 - 13+ 2-dose series) 10/06/1999 Hepatitis B Screening 2004 Regular Well Visit/Exam 18-64 2004 Pneumococcal vaccine <65 (2 of 2 - PCV) 11/25/2020 11/26/2019 Depression Screening 06/07/2021 06/07/2020 Lipid Panel 02/03/2023 02/03/2022, 06/17/2017 Covid-19 Vaccine ( season) 2023 08/19/2020, 07/29/2020 Influenza Vaccine (#1) 2023 , 12/17/2019, 01/01/2019, Additional history exists DTaP/Tdap/Td Vaccine (2 - Td or Tdap) 11/11/2025 11/12/2015 HPV Vaccines Aged Out No longer eligi ble based on patient's age to complete this topic Medical Devices Implanted Type Area Board Catcher Device Identifier Shelf Expiration Date Model / Serial / Lot Arthrex Inc 4.5mm 45mm Self Tap Thread Knee Bicortical Low Profile Post Ar-1365-45 - [id number] Implanted:Qty: 1 on 03/29/2022 by Gallito Aguilar MD at [facility] Left: Tibia [employer] Inc AR-1365-45 / / Ar[employer] Post Fxatn 50mm 4.5mm Loprfl Knee Bicortical Ti St Thread Ar-1365-50 - [id number] Implanted:Qty: 1 on 03/29/2022 by Gallito Aguilar MD at [facility] Left: Tibia [employer] AR-1365-50 / / [employer] Suturetak Tigerwire 3mm 14.5mm 2 [place] Suture Fiberwire [id number] - [id number] Implanted:Qty: 1 on 03/29/2022 by Gallito Aguilar MD at [facility] Left: Tibia [employer] 06/30/2025 AR-1934BCF- 2 / / [id number] Explanted Type Area Board Catcher Device Identifier Shelf Expiration Date Model / Serial / Lot Ar[employer]rex Inc 4.5mm 47.5mm Self Tap Thread Knee Bicortical Low Profile Post Ar-1365-475 - [id number] Explanted:Qty: 1 on 03/29/2022 at [facility] Left: Tibia [employer] AR-1365-475 / / Insurance [facility] Care Teams Soft Sugar Cutter Relationship Specialty Start Date End Date Shan Edward DO [address] [place] [id number] PCP - General 11/19/21 Shannon Maza MD 2022 [address] [address] Referring Physician Gynecology 02/13/23
--- OUTSIDE RECORDS SUMMARY | 2024-06-27 14:28 | XMS_ITS ---
Author Organization [facility] Address [address] [place] [address] Care Team Providers Care Seasonal Tax Preparer Name Role Phone Shan Edward Primary Care Provider Jeanette Peace Unavailable [phone] Abraham Lamar [phone] REASON FOR VISIT SCIT (Aeroallergen) Encounters Encounter Location Date Provider Diagnosis [facility] [address] [place] [address] 02/14/2024 Abraham Lamar Plan Of Treatment No Information Progress Notes * Danielle MACKJARRLEL:1985 (38 yo F)Acc No.[id number]:02/14/2024 SCIT-Aeroallergen Patient: Abdirizak RUSSELL Provider: Arden Lamar MD :1985 A ge:38 Y S ex:Female Date:02/14/2024 Address:[address] Pcp:Shan Edward Subjective: * Chief Complaints: * 1 . SCIT (Aeroallergen). * Medical History: Objective: * Vitals: Assessment: Plan: * Treatment: * Billing Information: * Visit Code: * Procedure Codes: * Electronic signature of Dottie Lamar MD, FAAAAI on 06/27/2024 at 02:28 PM CDT Sign off status: Pending * Provider: Arden Lamar MD Date: 1 04/15/2023 Generated for Lukasz weir/Scott/Mundo on: 0 06/27/2024 02:28 PM AGUSTÍNT
--- OUTSIDE RECORDS SUMMARY | 2024-06-27 14:28 | XMS_ITS | Encounter Summary ---
Author Organization [facility] Address Formerly [facility], [id number] [place] [address] Care Team Providers Care Ux Researcher Name Role Phone Shan Edward Arden VICENTE Primary Care Provider + Encounter Details Date Type Department Care Team (Late Contact Info) Description 09/27/2022 MyChart Message Enc [facility] Medical Group - [facility] [address] [place] [address] [employer], [facility] Provider Air Quality Message Social History Tobacco Use Types Packs/Day Years Used Date Smoking Tobacco: Never Smokeless Tobacco: Never Alcohol Use Standard Drinks/Week Comments No 0 (1 standard drink = 0.6 oz pur e alcohol) AUDIT-C Answer Date Recorded Frequency of Alcohol Consumption Never 03/05/2018 Average Number of Drinks Not on file 018 Frequency of Binge Drinking Not on file 07/2017 PHQ-2 Answer Date Recorded Patient Health Questionnaire-2 Score 0 05/23/2022 Comments No Sex and Gender Information Value Date Recorded Sex Assigned at Female 03/11/2024 12:09 PM STUDIO MODEL Legal Sex Female 1:50 PM CDT Gender Identity Female 03/11/2024 12:09 PM STUDIO MODEL Sexual Orientation Not on file 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 file Not on file Not on jose e documented as of this encounter Plan of Treatment Upcoming Encounters Date Type Department Care Team (Late Contact Info) Description 07/18/2024 9:40 AM CDT [facility] [address], [address] [place] [address] Donell Farrell DO [address] [facility] [address] [place] [address] 08/08/2024 9:00 AM CDT Office Visit [facility] Medical Group Family & Internal Medicine - [place] [address] [place] [address] Shan Edward DO [address] [place] [address] documented as of this encounter Visit Diagnoses Not on filedocumented in this encounter Additional Health Concerns Infection Onset Date Last Indicated Resolved Time COVID-19 Rule Out 03/08/2023 03/08/2023 03/08/2023 2:39 PM STUDIO MODEL COVID-19 Rule Out 03/08/2023 03/08/2023 03/09/2023 6:19 PM STUDIO MODEL COVID-19 Rule Out 05/07/2023 05/07/2023 05/07/2023 12:10 PM STUDIO MODEL COVID-19 Rule Out 05/07/2023 05/07/2023 05/09/2023 1:13 AM STUDIO MODEL COVID-19 Confirmed 05/07/2023 05/07/2023 12:32 AM STUDIO MODEL COVID-19 Rule Out 05/20/2024 05/20/2024 05/20/2024 3:42 PM STUDIO MODEL Influenza - Seasonal 05/20/2024 05/20/2024 025 12:33 AM STUDIO MODEL Assessment Noted Time PHQ-9 Depression Total Score: 1 05/23/19 23 1:37 PM STUDIO MODEL documented as of this encounter Care Teams Ux Researcher Relationship Specialty Start Date End Date Shan Edward DO [address] [place] [address] PCP - General FAMILY PRACTICE 02/01/18 documented as of this encounter
--- OUTSIDE RECORDS SUMMARY | 2024-06-27 14:28 | XMS_ITS | Clinical Summary ---
Author Organization [facility] Address [address] [place] [address] Care Team Providers Care Auto Service Dispatcher Name Role Phone AnkitmarianashinsalazarPamela Arden VICENTE Primary Care Provider + Allergies No known active allergies Medications multivitamin tablet Take 1 tablet by mouth daily. Active acetaminophen 500 MG tablet Take 1 tablet (500 mg total) by mouth every 6 (six) hours as needed for Pain. Active SYRINGE-NEEDLE, DISP, 3 ML 25G X 5/8 3 ML Misc USE FOR B12 INJECTIONS EVERY 2 WEEKS 020 Active Cholecalciferol 50 MCG (2000 UT) Cap Take 2,000 Units by mouth daily. Active albuterol (PROVENTIL) (2.5 MG/3ML) 0.083% nebulizer solutionIndicatio ns:Mild intermittent asthma without complication ([facility]) INHALE 1 VIAL VIA NEBULIZER EVERY 6 HOURS NEEDED FOR WHEEZING 375 mL 023 Active cyanocobalamin (B-12) 1000 MCG/ML injection 6 mLs (6,000 mcg total). 024 Active cetirizine (ZYRTEC ALLERGY) 10 MG tablet Take 1 tablet (10 mg total) by mouth daily. Active rosuvastatin (CRESTOR) 5 MG tabletIndications :Hyperlipidemia, unspecified hyperlipidemia type Take 1 tablet (5 mg total) by mouth nightly at bedtime. 90 tablet 1 024 Active semaglutide (OZEMPIC) 1 mg/dose injection (PEN)Indications: Diabetes Mellitus Inject 1 mg into the skin once a week. Indications: Diabetes 9 mL 1 024 Active metFORMIN (GLUCOPHAGE) 1000 MG tabletIndications :Type 2 diabetes mellitus without complication, without long-term current use of insulin (CMS/HCC HHS/HCC) Take 0.5 tablets (500 mg total) by mouth daily with breakfast. 45 tablet 1 Active EPINEPHrine 0.3 MG/0.3ML injection Inject 0.3 mLs (0.3 mg total) into the muscle as needed. Active rizatriptan (MAXALT-CHEMISTRY TECHNOLOGIST) 10 MG disintegrating tabletIndications :Migraine without status migrainosus, not intractable, unspecified migraine type TAKE 1 TABLET (10 MG TOTAL) BY MOUTH NEEDED FOR MIGRAINE. MAY REPEAT IN 2 HOURS IF NEEDED TIMES ONE DOSE 18 tablet Active BREZTRI AEROSPHERE 160-9-4.8 MCG/ACT inhalerIndication s:Mild persistent asthma with exacerbation (HHS/HCC) INHALE 2 PUFFS INTO THE LUNGS TWICE DAILY 32.1 g 025 Active Albuterol-Budeson tomasz (AIRSUPRA) 90-80 MCG/ACT AerosolIndication s:Exacerbation of asthma, unspecified asthma severity, unspecified whether persistent (HHS/HCC) Inhale 2 puffs into the lungs every 4 (four) hours as needed (Wheezing/SOB) . Two inhalations every 20 minutes as needed for up to 3 doses (6 inhalations total); subsequently, may administer 2 inhalations every 1 to 4 hours as needed; if symptoms worsen or recur within 1 to 3 hours, this suggests further medical attention may be required 32.1 g 025 Active BREZTRI AEROSPHERE 160-9-4.8 MCG/ACT inhalerIndication s:Mild persistent asthma with exacerbation (HHS/HCC) inhale 2 puffs into the lungs twice daily 32.1 g 024 2024 Discontinued Albuterol-Budeson tomasz (AIRSUPRA) 90-80 MCG/ACT AerosolIndication s:Exacerbation of asthma, unspecified asthma severity, unspecified whether persistent (HHS/HCC) Inhale 2 puffs into the lungs every 4 (four) hours as needed (Wheezing/SOB) . 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) 11/26/2019 Vitamin D deficiency 12/18/2018 Elevated liver enzymes 12/18/2018 Other iron deficiency anemia 03/05/2018 Diabetes mellitus ([facility]) 01/25/2018 Encounters Date Type Department Care Team Description 05/20/2024 1:40 PM FLOOR LAYER APPRENTICE Telemedicine [facility] Family & Internal Medicine [address] [address] Pamela Suarez, URI (Cough, congestion, fever x2-3 days. Negative covid an flu at home test ) 05/20/2024 Travel 05/20/2024 Telephone [facility] Family & Internal [address] [address] Pamela Suarez, Medication Request; Orders 05/14/2024 9:34 AM FLOOR LAYER APPRENTICE - 05/14/2024 11:59 PM FLOOR LAYER APPRENTICE Hospital Encounter [facility] Cardiopulmonary Services [id number] [place] [address] Pamela Suarez DO Discharge Disposition: Home or Self Care (Routine Discharge) 05/14/2024 Scan HEALTH INFO SRVCS Scanned, Doc Med Group Procedure (SCAN) 05/14/2024 Travel 05/06/2024 9:00 AM FLOOR LAYER APPRENTICE Office Visit [facility] Medical Group Family & Internal Medicine [address] [address] Pamela Suarez DO Diabetes; Hyperlipidemia; Asthma 05/06/2024 Travel from Last 3 Months Immunizations Name Administration Dates Next Due Influenza Adult (Generic) 01/05/2021,,01/01/2019,02/10/2018,12/01 Pneumococcal (Pneumovax 23) 11/26/2019 Tdap (Generic) 11/12/2015 Family History Medical History Relation Comments Heart Disease Maternal Grandfather COPD Maternal Grandmother Lung Disease Maternal Grandmother COPD Mother Diabetes Mother Hypertension Mother Early Paternal Grandfather Heart Disease Paternal Grandfather Lung Disease Paternal Grandmother Relation Status Comments Maternal Grandfather Maternal Grandmother Mother Paternal Grandfather Paternal Grandmother Social History Tobacco Use Types Packs/Day Years Used Date Smoking Tobacco: Never Passive Smoke Exposure: Never Smokeless Tobacco: Never Tobacco Cessation:Counseling Given: Not Answered Alcohol Use Standard Drinks/Week Comments Not Currently 0 (1 standard drink = 0.6 oz pur e alcohol) AUDIT-C Answer Date Recorded Frequency of Alcohol Consumption Never 03/05/2018 Average Number of Drinks Not on file 018 Frequency of Binge Drinking Not on file 07/2017 PHQ-2 Answer Date Recorded Patient Health Questionnaire-2 Score 0 05/06/2024 Comments No Sex and Gender Information Value Date Recorded Sex Assigned at Female 03/11/2024 12:09 PM FLOOR LAYER APPRENTICE Legal Sex Female 1:50 PM CDT Gender Identity Female 03/11/2024 12:09 PM FLOOR LAYER APPRENTICE Sexual Orientation Not on file 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 on file Not on file Not on jose e Last Filed Vital Signs Vital Sign Reading Time Taken Comments Blood Pressure 106/64 05/06/2024 9:01 AM FLOOR LAYER APPRENTICE Pulse 100 05/06/2024 9:01 AM FLOOR LAYER APPRENTICE Temperature 36.9 C (98.4 F) 05/06/2024 9:01 AM FLOOR LAYER APPRENTICE Respiratory Rate 16 05/06/2024 9:01 AM FLOOR LAYER APPRENTICE Oxygen Saturation 96% 05/06/2024 9:01 AM FLOOR LAYER APPRENTICE Inhaled Oxygen Concentration - - Weight 90.9 kg (200 lb 6.4 oz) 05/06/2024 9:01 A M FLOOR LAYER APPRENTICE Height 167.6 cm (5' 6 ) 05/06/2024 9:01 AM FLOOR LAYER APPRENTICE Body Mass Index 32.35 05/06/2024 9:01 AM FLOOR LAYER APPRENTICE Plan of Treatment Upcoming Encounters Date Type Department Care Team (Late st Contact Info) Description 07/18/2024 9:40 AM CDT Office Visit [facility] Medical Group Multispecialty Care - [facility] [address] [place] [address] Donell Farrell [address] [place] [address] 08/08/2024 9:00 AM CDT Office Visit [facility] Medical Group Family & Internal Medicine - [address] [phone] Pamela Suarez DO [address] [place] [address] Health Maintenance Due Date Last Done Comments Kidney Health Evaluation 1985 Cervical Cancer Screening Pap with HPV Testing (Age 30 to 64) Every 5 Years 2016 Pneumococcal Vaccine: Pediatrics (0 to 5 Years) and At-Risk Patients (6 to 64 Years) (2 of 2 - PCV) 11/25/2020 11/26/2019 Cervical Cancer Screening Pap Smear (Age 30 to 64) Every 3 Years 11/03/2023 11/02/2020, 10/31/2019, 08/07/2018 Cervical Cancer Screening with HPV 11/03/2023 Diabetes: Retinopathy Eye Exam 11/25/2023 11/24/2021, 07/11/2018 Annual Physical 02/08/2024 02/07/2023 Lipid Panel 02/08/2024 02/07/2023, 07/2021, 12/23/2020, Additional history exists Hemoglobin A1C 11/03/2024 05/06/2024, 05/2023, 09/06/2023, Additional history exists Hepatitis B Vaccines (1 of 3 - 19+ 3-dose series) 01/01/2025 Postponed from 2005 (Patient/Guardian Refusal) Influenza Adult (#1) 2025 01/05/2021, 12/17/2019, 01/01/2019, Additional history exists Postponed from 01/01/2024 (Patient Refused) DTaP, Tdap and Td Vaccines (2 - Td or Tdap) 11/11/2025 11/12/2015 COVID-19 Vaccine ( season) 2112 08/19/2020, 07/29/2020 Postponed from 12/02/2023 (Going to Outside Clinic) Hepatitis C Completed 02/07/2023 PHQ-2 (Physician [place]) Completed 05/06/2024 HPV Vaccines Aged Out No longer eligi ble based on patient's age to complete this topic Meningococcal B Vaccine Aged Out No l onger eligible based on patient's age to complete this topic Meningococcal Vaccine Aged Out No regina nikki eligible based on patient's age to complete this topic RSV Immunizations Under 20 Months Aged Out No longer eligible based on patient's age to complete this topic Procedures Procedure Name Priority Date/Time Associated Diagnosis Comments XR CHEST PA+LAT Routine 05/20/2024 3:24 PM FLOOR LAYER APPRENTICE Acute cough Fever, unspecified fever cause CORONAVIRUS (COVID-19) INFLUENZA A & B ANTIGEN IA PANEL Routine 05/20/2024 Acute cough Fever, unspecified fever cause PULMONARY FUNCTION TEST Routine 05/14/2024 10:00 AM FLOOR LAYER APPRENTICE Moderate persistent asthma with exacerbation (HHS/HCC) PULMONARY GENERIC 05/14/2024 PULMONARY GENERIC 05/14/2024 COLLECT.CAPILLARY (FNGR,HEEL,EAR) Routine 05/06/2024 9:07 AM FLOOR LAYER APPRENTICE Type 2 diabetes mellitus without complication, without long-term current use of insulin (CMS/HCC HHS/HCC) DESTRUCTION BY NEUROLYTIC AGENT Routine 05/06/2024 9:00 AM FLOOR LAYER APPRENTICE Wart of hand HEMOGLOBIN, GLYCOSYLATED Routine 05/06/2024 Type 2 diabetes mellitus without complication, without long-term current use of insulin (CMS/HCC HHS/HCC) HEPATITIS C ANTIBODY Routine 02/07/2023 9:49 AM FLOOR LAYER APPRENTICE Encounter for preventative adult health care examination Screening for lipid disorders Screening for endocrine, metabolic and immunity disorder Need for hepatitis C screening test LIPID PANEL Routine 02/07/2023 9:49 AM FLOOR LAYER APPRENTICE Encounter for preventative adult health care examination Screening for lipid disorders Screening for endocrine, metabolic and immunity disorder DIABETIC RETINOPATHY EXAM (NEGATIVE)(SCAN ORDER) Routine 11/24/2021 OUTSIDE CYTOPATH CERV/VAG INTERPRET (PAP) (SCAN ORDER) 11/02/2020 from Last 3 Months or Most Recently Relevant to Health Maintenance Results * XR CHEST PA+LAT (05/20/2024 3:24 PM FLOOR LAYER APPRENTICE) Anatomical Region Laterality Modality Chest Radiographic Lisandra ging 05/20/2024 3:46 PM FLOOR LAYER APPRENTICE Impressions 05/20/2024 3:47 PM FLOOR LAYER APPRENTICE IMPRESSION: No acute findings Ordered By: PAMELA SUAREZ Interpreted By: Piyush Gupta MD, 05/20/2024 3:46 PM Narrative 05/20/2024 3:47 PM FLOOR LAYER APPRENTICE [facility] Medical Group [place] [address] 2 VIEWS OF THE CHEST Clinical history: Cough and fever Comparison: March 08, 2023 2 views of the chest demonstrate the cardiac silhouette to be normal in size and appears stable. The pulmonary vasculature is normal in appearance. The Lungs are clear. No consolidations or effusions are seen. Procedure Note Piyush Gupta MD - 05/20/2024 [facility] Medical Group [place] [address] 2 VIEWS OF THE CHEST Clinical history: Cough and fever Comparison: March 08, 2023 2 views of the chest demonstrate the cardiac silhouette to be normal insize and appears stable. The pulmonary vasculature is normal inappearance. The Lungs are clear. No consolidations or effusions are seen. IMPRESSION: No acute findings Ordered By: PAMELA SUAREZ Interpreted By: Piyush Gupta MD, 05/20/2024 3:46 PM us Pamela Suarez DO GENERAL IMAGING Final Re sult * (ABNORMAL) CORONAVIRUS (COVID-19) INFLUENZA A & B ANTIGEN IA PANEL (05/20/2024) CORONAVIRUS ANTIGEN IA NEGATIVE NEGATIVE [facility] INFLUENZA A POSITIVE(A) NEGATIVE [facility] INFLUENZA B NEGATIVE NEGATIVE [facility] Internal Control: VALID VALID [facility] NASAL STRUCTURE / Unknown 05/20/2024 us Pamela Suarez DO MICROBIOLOGY - GENERAL O RDERABLES Final Result Performing Organization Address City/State/[facility] [place] [address], * Complete PFT (pre/post Ackley, Lung Vol, Diff Capacity) ([id number], [id number], [id number], [id number]) (05/14/2024 10:00 AM FLOOR LAYER APPRENTICE) Narrative [facility] - 05/14/2024 10:00 AM FLOOR LAYER APPRENTICE China Marc MD 05/15/2024 7:49 PM [facility] PULMONARY FUNCTION TEST REPORT Abdirizak Bhardwaj INTERPRETATION Please see scanned PFT report for raw values, flow-volume loop, and therapist's comments. Spirometry: Prebronchodilator FVC 4.42 L, 111% predicted. FEV1 3.81 L, 122% predicted. FEV1/FVC 86%. Postbronchodilator FVC 4.46 L, 112% predicted. FEV1 3.88 L 124% predicted. FEV1/FVC 87%. Less than significant response to bronchodilator. Lung volumes: TLC 105% predicted. RV 84% predicted. ERV 72% predicted. Diffusing capacity: Unadjusted DLCO 106% predicted. IMPRESSION: 1. Spirometry within normal limits. 2. Less than significant response to bronchodilator, this does not preclude use. Clinical correlation advised. If there is concern for asthma, please entertain methacholine challenge testing. 3. Total lung capacity within normal limits. Reduction in ERV may be related to increased body habitus or physical deconditioning. 4. Unadjusted DLCO within normal limits. CHINA MARC MD Pamela Suarez DO PFT ORDERABLES Final Re sult [facility] [address] [place] [id number], * PULMONARY GENERIC (05/14/2024) 05/14/2024 [employer] [facility] Scanned SCANNING Final Resu lt * PULMONARY GENERIC (05/14/2024) 05/14/2024 [facility] Scanned SCANNING Final Resu lt * Lesion Destruction (05/06/2024 9:00 AM FLOOR LAYER APPRENTICE) Narrative Pamela Suarez DO - 05/06/2024 9:00 AM FLOOR LAYER APPRENTICE Pamela Suarez DO 05/06/2024 9:37 AM Lesion Destruction Date/Time: 05/06/2024 9:00 AM Performed by: Pamela Suarez DO Authorized by: Pamela Suarez DO Number of Lesions: 1 Lesion 1: Body area: upper extremity Upper extremity location: R hand Malignancy: benign lesion Destruction method: cryotherapy Comments: Pt gave verbal consent today after discussion of risks/benefits. Treated with cryotherapy for 2-4 seconds for 3 cycles. Pt tolerated without complication. Pamela Suarez DO NEUROLOGY ORDERABLES Fin al Result * (ABNORMAL) HEMOGLOBIN, GLYCOSYLATED (05/06/2024) HGB A1C 6.9(A) % [facility] 05/06/2024 Pamela Suarez DO LABORATORY Final Re sult [facility] [address] [place] [address], * LIPID PANEL (02/07/2023 9:49 AM FLOOR LAYER APPRENTICE) CHOLESTEROL 180 <200 MG/DL 02/07/2023 4:[address] [facility] TRIGLYCERIDES 47 <150 MG/DL 02/07/2023 4:[address] [facility] HDL 84 >40 MG/DL 02/07/2023 4:[address] [facility] LDL-C 87 <100 MG/DL 02/07/2023 4:[address] [facility] VLDL CALCULATION 9 5 - 28 MG/DL 02/07/2023 4:[address] [facility] CHOL/HDL RATIO 2.1 0.0 - 4.0 02/07/2023 4:[address] [facility] LDL/HDL 1.0 0.41 - 2.13 02/07/2023 4:[address] [facility] NON HDL CHOLESTEROL 96 <140 MG/DL 02/07/2023 4:[address] [facility] 02/07/2023 9:49 AM FLOOR LAYER APPRENTICE Pamela Suarez DO LABORATORY Final Re sult Performing Organization Address City/[facility]/ZIP Co de Phone Number -[facility] [address] [facility] [address], [place] [phone] * HEPATITIS C ANTIBODY ([facility] ONLY) (02/07/2023 9:49 AM FLOOR LAYER APPRENTICE) HEPATITIS C AB NON-REACTI VE NON-REACT MARCELINO 02/07/2023 6:52 PM FLOOR LAYER APPRENTICE [facility] Comment: ANTIBODIES TO HCV NOT DETECTED. DOES NOT EXCLUDE THE POSSIBILITY OF EXPOSURE TO HCV. 02/07/2023 9:49 AM FLOOR LAYER APPRENTICE Pamela Arden Suarez DO LABORATORY Final Re sult Performing Organization Address [facility] Co de Phone Number [facility] [address] [place] [address], [place] [phone] * DIABETIC RETINOPATHY EXAM (NEGATIVE)(SCAN) (11/24/2021) us Documents Scanned SCANNING Final Result Performing Organization Address [facility] Co de Phone Number [facility] ONBASE * OUTSIDE CYTOPATH CERV/VAG INTERPRET (PAP) (11/02/2020) 11/02/2020 Narrative 11/02/2020 Ordered by an unspecified provider. us Documents Scanned SCANNING Final Result from Last 3 Months or Most Recently Relevant to Health Maintenance Insurance [employer] Care Teams Auto Service Dispatcher Relationship Specialty Start Date End Date Pamela Suarez DO [address] [place] [address] PCP - General FAMILY PRACTICE 02/01/18
--- OUTSIDE RECORDS SUMMARY | 2024-06-27 14:28 | XMS_ITS ---
Author Organization [facility] Address [address] [place] [address] Care Team Providers Care Hairspring Studder Name Role Phone Shan Edward Primary Care Provider Jeanette Peace Unavailable [phone] Abraham Lamar [phone] REASON FOR VISIT SCIT (Aeroallergen) Encounters Encounter Location Date Provider Diagnosis [facility] [address] [place] [address] 02/21/2024 Abraham Lamar Plan Of Treatment No Information Progress Notes * Danielle MACKJARRELL:1985 (38 yo F)Acc No.[id number]:02/21/2024 SCIT-Aeroallergen Patient: Abdirizak RUSSELL Provider: Arden Lamar MD :1985 A ge:38 Y S ex:Female Date:02/21/2024 Address:[address] Pcp:Shan Edward Subjective: * Chief Complaints: * 1 . SCIT (Aeroallergen). * Medical History: Objective: * Vitals: Assessment: Plan: * Treatment: * Billing Information: * Visit Code: * Procedure Codes: * Electronic signature of Dottie Lamar MD, FAAAAI on 06/27/2024 at 02:28 PM CDT Sign off status: Pending * Provider: Arden Lamar MD Date: 1 04/22/2023 Generated for Lukasz weir/[place]/Mundo on: 0 06/27/2024 02:28 PM AGUSTÍNT
--- OUTSIDE RECORDS SUMMARY | 2024-06-27 14:28 | XMS_ITS | Encounter Summary ---
Author Organization [facility] Address [facility] [place] [address] Care Team Providers Care Cable Maker Name Role Phone Shan Edward DO Primary Care Provider + Encounter Details Date Type Department Care Team (Late st Contact Info) Description 04/05/2021 Ph.Creativehart Message Enc [facility] Family & Internal Medicine [facility] [address] [place] [phone] Shan Edward DO [address] [place], [place] [phone] Appointment - 04/08 Social History Tobacco Use Types Packs/Day Years Used Date Smoking Tobacco: Never Smokeless Tobacco: Never Alcohol Use Standard Drinks/Week Comments No 0 (1 standard drink = 0.6 oz pur e alcohol) AUDIT-C Answer Date Recorded Frequency of Alcohol Consumption Never 03/05/2018 Average Number of Drinks Not on file 018 Frequency of Binge Drinking Not on file 07/2017 PHQ-2 Answer Date Recorded PHQ-2 Score - If the patient scores above 3, please move on to questions 3-9 0 04/08/2021 Comments No Sex and Gender Information Value Date Recorded Sex Assigned at Female 03/11/2024 12:09 PM BOAT WRAPPER Legal Sex Female 1:50 PM CDT Gender Identity Female 03/11/2024 12:09 PM BOAT WRAPPER Sexual Orientation Not on file 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 Yes 04/07/2021 7:42 AM BOAT WRAPPER documented as of this encounter Progress Notes * Shan Edward DO - 04/06/2021 9:11 AM CST We would be repeating blood; I'd keep the appointment. We could potentially schedule labs for laterdate, but we need appointment still. WRAPPER documented in this encounter Plan of Treatment Upcoming Encounters Date Type Department Care Team (Late st Contact Info) Description 07/18/2024 9:40 AM CDT Office Visit [facility] Multispecialty Care - [facility] [address] [place] [address] Donell Farrell DO [address] [facility] [address] [place] [address] 08/08/2024 9:00 AM CDT Office Visit [facility] Family & Internal Medicine - [address] [phone] [place] [address] [place] [id number] documented as of this encounter Visit Diagnoses Not on filedocumented in this encounter Additional Health Concerns Infection Onset Date Last Indicated Resolved Time COVID-19 Rule Out 04/25/2021 04/26/2021 05/02/2021 12:32 AM BOAT WRAPPER COVID-19 Confirmed 04/26/2021 04/26/2021 12:32 AM BOAT WRAPPER COVID-19 Rule Out 03/13/2022 03/13/2022 03/14/2022 3:20 PM BOAT WRAPPER COVID-19 Rule Out 03/08/2023 03/08/2023 03/08/2023 2:39 PM BOAT WRAPPER COVID-19 Rule Out 03/08/2023 03/08/2023 03/09/2023 6:19 PM BOAT WRAPPER COVID-19 Rule Out 05/07/2023 05/07/2023 05/07/2023 12:10 PM BOAT WRAPPER COVID-19 Rule Out 05/07/2023 05/07/2023 05/09/2023 1:13 AM BOAT WRAPPER COVID-19 Confirmed 05/07/2023 05/07/2023 12:32 AM BOAT WRAPPER COVID-19 Rule Out 05/20/2024 05/20/2024 05/20/2024 3:42 PM BOAT WRAPPER Influenza - Seasonal 05/20/2024 05/20/2024 025 12:33 AM BOAT WRAPPER Assessment Noted Time PHQ-9 Depression Total Score: 1 11/26/19 20 1:07 PM CDT documented as of this encounter Care Teams Cable Maker Relationship Specialty Start Date End Date Shan Edward DO [address] [place] [phone] PCP - General FAMILY PRACTICE 02/01/18 documented as of this encounter
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
--- OUTSIDE RECORDS SUMMARY | 2024-06-27 14:29 | XMS_ITS | Patient Health Record ---
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 Treatment Pending Test Test Name Order Date GUINEA PIG EPITHELIA (E6) IGE 12/06/2023 Insurance Providers Payer Name Payer Address Payer Phone Subscriber Number Group Number Insured Name Patient Relationship to Insured Coverage Start Date Coverage End Date Aetna Choice POS II [address] [place] [phone] [id number] Abdirizak Bhardwaj Self - patient is the insured 8 Medical (General) History Medical History History ICD Code Type 1 diabetes mellitus with unspecifie d complications E10.8 Iron deficiency anemia, unspecified D50. 9
[2024-06-27 14:38] LABS: Hematocrit 39.4 % (37.0-47.0); Mean Corpuscular Hemoglobin 31.3 pg (26-34); Mean Corpuscular Volume 94.7 fl (80-100); Mean Platelet Volume 9.7 fl (7.4-10.4); Platelet Count Result 221 k/mm3 (150-375); Red Blood Count 4.16 M/mm3 (4.2-5.4); Red Cell Distribution Width 11.9 % (11.5-14.5); White Blood Count 6.8 K/mm3 (4.5-10.0)
[2024-06-27 15:23] LABS: Iron 66 ug/dL (37-170)
[2024-06-27 15:41] LABS: Percent Iron Saturation 17 % (20-50)
[2024-06-27 15:59] LABS: Ferritin 8.13 ng/mL (6.24-137)
== END 2024-06-27 14:27 | disposition home or self-care (01) ==
LOC: ANHLAB 14:27
PROVIDERS: PCP Student in an Organized Health Care Education/Training Program; Visit Provider Internal Medicine Hematology & Oncology
DX: D50.9 Iron deficiency anemia, unspecified (principal); E53.8 Deficiency of other specified B group vitamins
CPT/HCPCS: 36415; 82607; 82728; 82746; 83540; 83550; 85027

== ENCOUNTER 2024-10-16 15:19 | Outpatient (CLI) | payer OTHER, SELFPAY ==
--- OUTSIDE RECORDS SUMMARY | 2024-10-16 15:22 | XMS_ITS | Encounter Summary ---
Author Organization [facility] Address [facility] [place] [address] Care Team Providers Care Tool Grinder Operator Name Role Phone Shan Edward DO Primary Care Provider + Encounter Details Date Type Department Care Team (Late st Contact Info) Description 09/27/2022 MyChart Message Enc [facility] Medical [facility] [address] [place], [place] [id number] [place], [facility] Provider Air Quality Message Social History Tobacco [...] Sex Assigned at Female 03/11/2024 12:09 PM TELEPHONE TECHNICIAN Legal Sex Female 1:50 PM CDT Gender Identity Female 03/11/2024 12:09 PM TELEPHONE TECHNICIAN Sexual Orientation Not on file 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 on file Not on file Not on jose e documented as of this encounter Plan of Treatment Upcoming Encounters Date Type Department Care Team (Late st Contact Info) Description 02/12/2025 9:00 AM TELEPHONE TECHNICIAN Office Visit [facility] Medical [facility] [id number] [place] [phone] Shan Edward DO [address] [place] [address] 02/17/2025 8:20 AM TELEPHONE TECHNICIAN Office Visit [facility] Medical [facility] [address] [place] [address] Donell Farrell DO [address] [place] [address] documented as of this encounter Visit Diagnoses Not on filedocumented in this encounter Additional Health Concerns Infection Onset Date Last Indicated Resolved Time COVID-19 Rule Out 03/08/2023 03/08/2023 03/08/2023 2:39 PM TELEPHONE TECHNICIAN COVID-19 Rule Out 03/08/2023 03/08/2023 03/09/2023 6:19 PM TELEPHONE TECHNICIAN COVID-19 Rule Out 05/07/2023 05/07/2023 05/07/2023 12:10 PM TELEPHONE TECHNICIAN COVID-19 Rule Out 05/07/2023 05/07/2023 05/09/2023 1:13 AM TELEPHONE TECHNICIAN COVID-19 Confirmed 05/07/2023 05/07/2023 12:32 AM TELEPHONE TECHNICIAN COVID-19 Rule Out 05/20/2024 05/20/2024 05/20/2024 3:42 PM TELEPHONE TECHNICIAN Influenza - Seasonal 05/20/2024 05/20/2024 025 12:33 AM TELEPHONE TECHNICIAN Respiratory Rule Out 09/04/2024 09/04/2024 025 11:01 AM CDT Assessment Noted Time PHQ-9 Depression Total Score: 1 05/23/19 23 1:37 PM TELEPHONE TECHNICIAN documented as of this encounter Care Teams Tool Grinder Operator Relationship Specialty Start Date End Date Shan Edward DO [address] [place] [address] PCP - General FAMILY PRACTICE 02/01/18 documented as of this encounter
--- OUTSIDE RECORDS SUMMARY | 2024-10-16 15:22 | XMS_ITS | Patient Health Record ---
Author Organization [facility] ([address]) Address [address] [place] [address] Care Team Providers Care Air Conditioning Engineer Name Role Phone Shan Edward Primary Care Provider Jeanette Peace Unavailable [phone] Abraham Lamar Unavailable [phone] Cecile Christina Unavailable [phone] Pippa Larson Unavailable [phone] Allergies No Known Allergies Results Component Value [...] 3.21 SpiroPredicted_FEV1_OVER_FVC 83.39 SpiroPredicted_PEF 6.55 Spirometry Reviewed date:11/07/2023 04:28:06 PM Interpretation:Abnormal - [...] 3.21 SpiroPredicted_FEV1_OVER_FVC 83.39 SpiroPredicted_PEF 6.55 Spirometry Reviewed date:10/18/2023 01:48:51 PM Interpretation:Normal Performing [...] Reviewed date:10/25/2023 12:37:49 PM Interpretation:Abnormal Performing Lab:[facility], [address], [place], [address] Georgie Mock MD Notes/Report: NON-FASTING; NON-FASTING Can [...] Reviewed date:10/25/2023 12:37:57 PM Interpretation:Abnormal Performing Lab:[facility], [address] [place], [address] Georgie Mock MD Notes/Report: NON-FASTING; NON-FASTING Fel [...] of a reaction when exposed to cats. INTERPRETATION Reviewed date:10/25/2023 12:38:08 PM Interpretation:Interpretation Performing Lab:[facility], [facility], [address] [place], [address] Georgie Mock MD Notes/Report: NON-FASTING; NON-FASTING INTERPRETATION [...] analytical performance characteristics have been determined by [facility]. It has not been cleared or approved by the U.S. Food and Drug Administration. This assay has been validated pursuant to the CLIA regulations and is used for clinical purposes. ALPHA-1 ANTITRYPSIN (AAT) PH ENOTYPE Reviewed date:10/25/2023 12:38:24 PM Interpretation:Normal Performing Lab:[facility],, [address], [place], [address] Katy Aguiar MD,PhD,RUI Notes/Report: NON-FASTING; NON-FASTING WPBSW-7-XECULIXTVDG (AAT) PHENOTYPE SEE NOTE THIS PATIENT'S JEMXD-6-FVNULFWWUSI PHENOTYPE IS PI*MS. 90% of normal individuals have the MM phenotype, with normal quantitative AAT levels. Many phenotypic patterns have been described, including deficiency states with F, S, Z, or other alleles. As a general estimation, compared to M allele of 100% of normal Z-4-Qedmhqapcbm protein, the S allele produces approximately 60% and the Z allele 20%. For example, an MS phenotype would have about 80% of normal Z-9-Wirduehsbbp protein level, a 50% contribution from the M allele and 30% from the S allele. A ZZ phenotype would have about 20% of normal levels, a 10% contribution from each Z gene. The F allele has normal J-2-Hospdmgtrrc levels, but the kinetics of elastase inhibition [...] avoid confusion with the deficient MZ phenotype. CBC (INCLUDES DIFF/PLT) Reviewed date:10/25/2023 12:38:57 PM Interpretation:Normal Performing Lab:[facility], [facility], [address], [place], [address] Georgie Mock MD Notes/Report: NON-FASTING; NON-FASTING WHITE BLOOD CELL COUNT 6.5 3.8-10.8 Thousand/ uL RED BLOOD CELL COUNT 4.01 3.80-5.10 Million/uL HEMOGLOBIN 11.7 11.7-15.5 g/dL HEMATOCRIT 36.2 35.0-45.0 % MCV 90.3 80.0-100.0 fL MCH 29.2 27.0-33.0 pg MCHC 32.3 32.0-36.0 g/dL RDW 13.4 11.0-15.0 % PLATELET COUNT 228 140-400 Thousand/uL MPV 10.7 7.5-12.5 fL ABSOLUTE NEUTROPHILS 3738 4745-4589 cells/uL ABSOLUTE LYMPHOCYTES 3907 340-0797 cells/uL ABSOLUTE MONOCYTES 475 200-950 cells/uL ABSOLUTE EOSINOPHILS 390 15-500 cells/uL ABSOLUTE BASOPHILS 52 0-200 cells/uL NEUTROPHILS 57.5 LYMPHOCYTES 28.4 MONOCYTES 7.3 EOSINOPHILS 6.0 BASOPHILS 0.8 RESPIRATORY ALLERGY PROFILE REGION VIII: [place], [place] Reviewed date:10/25/2023 12:39:20 PM Interpretation:Abnormal Performing Lab:[place], [facility], [address], [place], [address] Georgie Mock MD Notes/Report: NON-FASTING; NON-FASTING DERMATOPHAGOIDES [...] ROUGH PIGWEED (W14) IGE <0.10 CLASS 0 [place] (W11) IGE <0.10 CLASS 0 ROUGH ESP[place]ZA ELDER (W16) IGE 0.31 CLASS 0/1 MOUSE URINE PROTEINS (E72) IGE 2.56 CLASS 2 IMMUNOGLOBULIN E 248 <MX=354 kU/L CAT DANDER (E1) IGE 0.13 CLASS 0/1 DOG DANDER (E5) IGE 21.80 CLASS 4 Reason For Referral No Information Medications Medication SIG (Take, Route, Frequency, Duration) Notes Start Date End Date Status Montelukast Sodium 10 MG 1 tablet Orally Once a day, at night; Duration: 90 days 08/14/2024 Active Vitamin D Active Nasal Washes as directed intranasally Active EPINEPHrine 0.3 MG/0.3ML as directed Inj ection as needed; Duration: 30 days Active metFORMIN HCl 1000 MG 1 tablet with a me al Orally Once a day Active Airsupra 90-80 MCG/ACT INHALE 2 PUFFS BY MOUTH EVERY 4 HOURS NEEDED FOR WHEEZING OR SHORTNESS OF BREATH. MAX OF 6 PUFFS PER DAY Inhalation; Duration: 60 Days Active B12 5000 MCG as directed Sublingual Active Ozempic (0.25 or 0.5 MG/DOSE) 2 MG/3ML as directed Subcutaneous Active Breztri Aerosphere 160-9-4.8 MCG/ACT 2 puffs Inhalation Twice a day Active Albuterol Sulfate HFA 108 (90 Base) MCG/ACT 1 puff as needed Inhalation every 4 hrs Active ZyrTEC Allergy 10 MG 1 tablet Orally Once a day Active Social History Tobacco Use: Social History Observation Description Date Details (start date - stop date) Never Smoker NA - NA Sex Assigned At : Social History Observation Description Sex Assigned At Female Tobacco Control (Standard) Question Answer Notes Tobacco use: Nonsmoker AUDIT-C (Standard) Question Answer Notes Did you have a drink containing alcohol in the p ast year? No Points 0 Interpretation Negative Problems Problem Type SNOMED Code ICD Code Onset Dates Problem Status W/U Status Risk Notes Problem Shortness of breath (998948437) Shortness of breath (R06.02) Active confirmed Problem Iron deficiency anemia (66835760) Iron deficiency anemia, unspecified (D50.9) Active confirmed Problem Type 1 diabetes mellitus with unspecified complications (E10.8) Active confirmed Problem Chronic allergic conjunctivitis (42976260) Other chronic allergic conjunctivitis (H10.45) Active confirmed Problem Allergic rhinitis caused by pollen (disorder) (02658455) Allergic rhinitis due to pollen (J30.1) Active confirmed Problem Allergic rhinitis (02168088) Other allergic rhinitis (J30.89) Active confirmed Problem Allergic rhinitis caused by animal hair and dander (594946530867281) Allergic rhinitis due to animal (cat) (dog) hair and dander (J30.81) Active confirmed Vital Signs Respiratory Rate 17 /min 10/18/2023 Blood pressure diastolic 69 mm Hg 08/14/2024 Oximetry 96 % 08/14/2024 Height 66 in 08/14/2024 Blood pressure systolic 101 mm Hg 08/14/2024 Weight 199.8 lbs 08/14/2024 BMI 32.25 kg/m2 08/14/2024 Encounters Encounter Location Date Provider Diagnosis [facility] [address] [place] [phone] 10/09/2024 Abraham Lamar Allergic rhinitis du e to pollen J30.1 ; Allergic rhinitis due to animal (cat) (dog) hair and dander J30.81 ; Other allergic rhinitis J30.89 and Other chronic allergic conjunctivitis H10.45 [facility] [address] [place] [phone] 10/18/2023 Jeanette Young Hypertrophy of nasal turbinates J34.3 ; Shortness of breath R06.02 and Chronic rhinitis J31.0 [facility] [address] [place] [phone] 11/07/2023 Cecile Christina Allergic rhinitis du e to pollen J30.1 ; Allergic rhinitis due to animal (cat) (dog) hair and dander J30.81 ; Other allergic rhinitis J30.89 ; Other chronic allergic conjunctivitis H10.45 ; Shortness of breath R06.02 ; Other diseases of vocal cords J38.3 and Elevated blood-pressure reading, without diagnosis of hypertension R03.0 [facility] [address] [place] [phone] 12/06/2023 Cecile Christina Allergic rhinitis du e to pollen J30.1 ; Allergic rhinitis due to animal (cat) (dog) hair and dander J30.81 ; Other allergic rhinitis J30.89 ; Other chronic allergic conjunctivitis H10.45 ; Shortness of breath R06.02 and Other diseases of vocal cords J38.3 [facility] [address] [place] [phone] 01/17/2024 Abraham Lamar Allergic rhinitis du e to pollen J30.1 ; Allergic rhinitis due to animal (cat) (dog) hair and dander J30.81 ; Other allergic rhinitis J30.89 and Other chronic allergic conjunctivitis H10.45 [facility] [address] [place] [phone] 01/24/2024 Abraham Lamar Allergic rhinitis du e to pollen J30.1 ; Allergic rhinitis due to animal (cat) (dog) hair and dander J30.81 ; Other allergic rhinitis J30.89 and Other chronic allergic conjunctivitis H10.45 [facility] [address] [place] [phone] 01/31/2024 Abraham Lamar Allergic rhinitis du e to pollen J30.1 ; Allergic rhinitis due to animal (cat) (dog) hair and dander J30.81 ; Other allergic rhinitis J30.89 and Other chronic allergic conjunctivitis H10.45 [facility] [address] [place] [phone] 02/07/2024 Abraham Lamar Allergic rhinitis du e to pollen J30.1 ; Allergic rhinitis due to animal (cat) (dog) hair and dander J30.81 ; Other allergic rhinitis J30.89 and Other chronic allergic conjunctivitis H10.45 [facility] [address] [place] [phone] 02/14/2024 Cecile Christina Allergic rhinitis du e to pollen J30.1 ; Shortness of breath R06.02 ; Allergic rhinitis due to animal (cat) (dog) hair and dander J30.81 ; Other allergic rhinitis J30.89 ; Other chronic allergic conjunctivitis H10.45 ; Other diseases of vocal cords J38.3 and Iron deficiency anemia, unspecified D50.[address] [address] 08/14/2024 Pippa Larson Allergic rhinitis du e to pollen J30.1 ; Shortness of breath R06.02 ; Allergic rhinitis due to animal (cat) (dog) hair and dander J30.81 ; Other allergic rhinitis J30.89 ; Other chronic allergic conjunctivitis H10.45 ; Other diseases of vocal cords J38.3 and Iron deficiency anemia, unspecified D50.9 [facility] [address] [place] [address] [employer] [address] [phone] 08/28/2024 Abraham Lamar Allergic rhinitis du e to pollen J30.1 ; Allergic rhinitis due to animal (cat) (dog) hair and dander J30.81 ; Other allergic rhinitis J30.89 and Other chronic allergic conjunctivitis H10.45 [facility] [address] [place] [address] [employer] [address] [address] 09/11/2024 Abrahampascale Lamar Allergic rhinitis du e to pollen J30.1 ; Allergic rhinitis due to animal (cat) (dog) hair and dander J30.81 ; Other allergic rhinitis J30.89 and Other chronic allergic conjunctivitis H10.45 [facility] [address] [place] [phone] 09/18/2024 Abraham Lamar Allergic rhinitis du e to pollen J30.1 ; Allergic rhinitis due to animal (cat) (dog) hair and dander J30.81 ; Other allergic rhinitis J30.89 and Other chronic allergic conjunctivitis H10.45 [facility] [address] [place] [phone] 09/25/2024 Abrahampascale Lamar Allergic rhinitis du e to pollen J30.1 ; Allergic rhinitis due to animal (cat) (dog) hair and dander J30.81 ; Other allergic rhinitis J30.89 and Other chronic allergic conjunctivitis H10.45 [facility] [address] [place] [address] [facility] [address] [address] 10/02/2024 Abraham Win Allergic rhinitis du e to pollen J30.1 ; Allergic rhinitis due to animal (cat) (dog) hair and dander J30.81 ; Other allergic rhinitis J30.89 and Other chronic allergic conjunctivitis H10.[address] [address] 12/06/2023 Jeanette Maloney [address] [address] 12/25/2023 [facility] [address] [place] [address] [place] [phone] 02/12/2024 Jeanette Maloney [facility] [address] [place] [address] 08/05/2024 Pippa Larson [facility] [address] [place] [address] 08/17/2024 Jeanette PEDERSON [facility] [address] [place] [address] [place] [phone] 08/26/2024 Pippa Larson [facility] [address] [place] [address] 09/03/2024 Jeanette Maloney [facility] [address] [place] [address] 09/03/2024 Jeanette Maloney [address] [place] [address] 09/04/2024 Jeanette Maloney [address] [place] [address] 09/10/2024 Jeanette Maloney Assessments Encounter Date Diagnosis (ICD Code) Assessment Notes Treatment Notes Treatment Clinical Notes Section Notes 10/18/2023 Shortness of breath (ICD-10 - R06.02) Abdirizak is here today for evaluation. She reports a history of childhood asthma. While living in [place] for a few years she has no [...] history of childhood asthma. While living in [place] for a few years she has no [...] dosing. - Follow-up in 3 for E&M 08/14/2024 Shortness of breath (ICD-10 - R06.02) Abdirizak reports a history of childhood asthma. While living in [place] for a few years she has no lower airway symptoms. The last few years having annual bronchitis each January requiring OCS + abx. She was previously on Breo but no clear benefit. She took steroids this Fall while experiencing increased lower airway symptoms. There was some mold exposure in that rental and dry wall dust which triggered her. She was seen in January for urgent visit, later established with Dr. Farrell stating he diagnosed me with asthma, no records to review. Abdirizak was switched from albuterol to AIRSUPRA, no additional changes made to her plan of care by Dr. Farrell. - Spirometry has always been normal, in fact super normal. Last visit, spirometry shows normal FVC, FEV1, FEV%. FVL shows blunted PEFR and inspiratory blunting, c/w VCD. Normal lung age. - As above, established care with pulmonary, Dr. Farrell. Records have been requested. - There is inspiratory flattening. She may have VCD instead of asthma, see below. She has previously reported she is not interested in ST. - ImmunoCaps showed several elevations, with total IgE 248. Absolute eosinophil count 390. - Continue Breztri BID and continue SOFIA use per AAP. Rinse out mouth after use. Instructed her to notify office for any increase in lower airways. Abdirizak is interested in trial of LTRA, as she took this in childhood. BBW discussed, order sent. - Consider PIDD workup for additional need for abx/OCS. - AAP formulated at prior visit. - AA1T phenotype checked as she reports a distant relative of asthma - normal. - Instructed to seek urgent evaluation for SOB not relieves by SOFIA or any worsening symptoms. - Treat atopy as stated below. Abdirizak is using minimal albuterol at this time. Plan to restart SCIT. Thoroughly discussed that if albuterol use increases SCIT will need to be held 08/14/2024 Allergic rhinitis due to pollen (ICD-10 - J30.1) Abdirizak clearly suffers from atopic disease based upon our skin testing and history. Accordingly, we have encouraged her medication regimen, discussed nasal washes and allergy-specific avoidance measures. We also discussed adjunctive therapies including subcutaneous, specific allergen immunotherapy as relates to the treatment and prevention of atopic disease. - SCIT was started on 01/17/24. Given ongoing inspiratory SOB requiring increased SOFIA use, dosing was held. Abdirizak is now established with Dr. Farrell. Consider restarting SCIT pending record review. TE sent to billing department regarding vials. - Patient has guinea pig in home [...] 2 hrs after dosing. - Follow-up in 2 months for E&M 08/28/2024 Allergic rhinitis due to pollen (ICD-10 - J30.1) 09/11/2024 Allergic rhinitis due to pollen (ICD-10 - J30.1) 09/18/2024 Allergic rhinitis due to pollen (ICD-10 - J30.1) 09/25/2024 Allergic rhinitis due to pollen (ICD-10 - J30.1) 10/02/2024 Allergic rhinitis due to pollen (ICD-10 - J30.1) 10/09/2024 Allergic rhinitis due to pollen (ICD-10 - J30.1) 08/14/2024 Allergic rhinitis due to animal (cat) (dog) hair and dander (ICD-10 - J30.81) Follow allergen avoidance, meds and consider restarting SCIT as an adjunctive treatment to current regimen. 10/09/2024 Allergic rhinitis due to animal (cat) (dog) hair and dander (ICD-10 - J30.81) 10/02/2024 Allergic rhinitis due to animal (cat) (dog) hair and dander (ICD-10 - J30.81) 09/25/2024 Allergic rhinitis due to animal (cat) (dog) hair and dander (ICD-10 - J30.81) 09/18/2024 Allergic rhinitis due to animal (cat) (dog) hair and dander (ICD-10 - J30.81) 09/11/2024 Allergic rhinitis due to animal (cat) (dog) hair and dander (ICD-10 - J30.81) 08/28/2024 Allergic rhinitis due to animal (cat) (dog) hair and dander (ICD-10 - J30.81) 02/14/2024 Allergic rhinitis due to animal (cat) [...] as an adjunctive treatment to current regimen. 08/14/2024 Other allergic rhinitis (ICD-10 - J30.89) Follow allergen avoidance, meds and consider restarting SCIT as an adjunctive treatment to current regimen. 08/28/2024 Other allergic rhinitis (ICD-10 - J30.89) 09/11/2024 Other allergic rhinitis (ICD-10 - J30.89) 09/18/2024 Other allergic rhinitis (ICD-10 - J30.89) 09/25/2024 Other allergic rhinitis (ICD-10 - J30.89) 10/02/2024 Other allergic rhinitis (ICD-10 - J30.89) 10/09/2024 Other allergic rhinitis (ICD-10 - J30.89) 08/28/2024 Other chronic allergic conjunctivitis (ICD-10 - H10.45) 08/14/2024 Other chronic allergic conjunctivitis (ICD-10 - H10.45) Given ocular signs and symptoms I encouraged allergy avoidance measures and meds as above. If symptoms persist, consider adding additional medications including intraocular antihistamine/mast cell stabilizer, PRN and consider restarting SCIT as an adjunctive measure. 10/09/2024 Other chronic allergic conjunctivitis (ICD-10 - H10.45) 10/02/2024 Other chronic allergic conjunctivitis (ICD-10 - H10.45) 09/25/2024 Other chronic allergic conjunctivitis (ICD-10 - H10.45) 09/18/2024 Other chronic allergic conjunctivitis (ICD-10 - H10.45) 09/11/2024 Other chronic allergic conjunctivitis (ICD-10 - H10.45) 02/14/2024 Other chronic allergic conjunctivitis (ICD-10 - [...] history of childhood asthma. While living in [place] for a few years she has no [...] history of childhood asthma. While living in [place] for a few years she has no [...] see pulmonary prior to pursuing speech therapy. 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 She was given an educational handout with exercises for VCD. Continue SOFIA use as needed. Consider speech therapy. Consider rhinoscopy for conclusive diagnosis. - Discussed speech therapy versus rhinoscopy, but patient was previously not interested. 08/14/2024 Iron deficiency anemia, unspecified (ICD-10 - D50.9) She received last iron infusion in 11/2023, slated for recheck of labs in the next 1-2 weeks. Instructed to notify office of results. Concerning that this may be playing a role in inspiratory shortness of breath. 11/07/2023 Elevated blood-pressure reading, without diagnosis of [...] Other 11/07/2023 Other 12/06/2023 Other 02/14/2024 Other 08/14/2024 Other Plan Of Treatment Pending Test Test Name Order Date GUINEA PIG EPITHELIA (E6) IGE 12/06/2023 Next Appt Details Provider Name:Abraham Giraldo Willard , 10/16/2024 05:00:00 PM, [address], [address], Provider Name:Abraham WaggonerManuel Lamar , 10/23/2024 05:00:00 PM, [address], [address], [place], [address], Provider Name:Pippa markham, 11/10/2024 01:30:00 PM, [address], [address] [place] [address], [phone], Insurance Providers Payer Name Payer Address Payer Phone Subscriber Number Group Number Insured Name Patient Relationship to Insured Coverage Start Date Coverage End Date A[employer] Choice POS II [address] [place] [address] [id number] Abdirizak Bhardwaj Self - patient is the insured 8 Medical (General) History Medical History History ICD Code Type 1 diabetes mellitus with unspecifie d complications E10.8 Iron deficiency anemia, unspecified D50. 9 Asthma
--- OUTSIDE RECORDS SUMMARY | 2024-10-16 15:22 | XMS_ITS | Encounter Summary ---
Author Organization [facility] Address [facility] [place] [address] Care Team Providers Care Crt Name Role Phone Shan Edward DO Primary Care Provider + Encounter Details Date Type Department Care Team (Late st Contact Info) Description 09/04/2024 [employer] Message Enc [facility] Family & Internal Medicine [facility] [address] [place] [address] Shan Edward DO [address] [place], [place] [id number] Appointment Needed or Urgent Care? 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 documented in this encounter Plan of Treatment Upcoming Encounters Date Type Department Care Team (Late st Contact Info) Description 02/12/2025 9:00 AM GARAGE LABORER Office Visit [facility] Family & Internal Medicine - [place] [address] [place] [address] Shan Edward DO [address] [place] [address] 02/17/2025 8:20 AM GARAGE LABORER Office Visit [facility] Multispecialty Care - [facility] [address] [place] [address] Donell Farrell DO [address] [place] [address] documented as of this encounter Visit Diagnoses Not on filedocumented in this encounter Additional Health Concerns Infection Onset Date Last Indicated Resolved Time Respiratory Rule Out 09/04/2024 09/04/2024 11:01 AM CDT Assessment Noted Time PHQ-9 Depression Total Score: 1 05/23/19 23 1:37 PM GARAGE LABORER documented as of this encounter Care Teams Crt Relationship Specialty Start Date End Date Shan Edward DO [address] [place] [id number] PCP - General FAMILY PRACTICE 02/01/18 documented as of this encounter
--- OUTSIDE RECORDS SUMMARY | 2024-10-16 15:22 | XMS_ITS | Encounter Summary ---
Author Organization [facility] Address [facility] [place] [address] Care Team Providers Care City Carrier Assistant Name Role Phone Shan Edward DO Primary Care Provider + Encounter Details Date Type Department Care Team (Late st Contact Info) Description 04/05/2021 [employer] Message Enc [facility] Medical [facility] Family & Internal Medicine [facility] [address] [place] [phone] Shan Edward DO [address] [place], [place] [phone] Appointment - 04/08 Social History Tobacco Use [...] Sex Assigned at Female 03/11/2024 12:09 PM ENGINEERING TEST SPECIALIST Legal Sex Female 1:50 PM CDT Gender Identity Female 03/11/2024 12:09 PM ENGINEERING TEST SPECIALIST Sexual Orientation Not on file 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 Yes 04/07/2021 7:42 AM ENGINEERING TEST SPECIALIST documented as of this encounter Progress Notes * Shan Edward DO - 04/06/2021 9:11 AM CST We would be repeating blood; I'd keep the appointment. We could potentially schedule labs for laterdate, but we need appointment still. NEERING TEST SPECIALIST documented in this encounter Plan of Treatment Upcoming Encounters Date Type Department Care Team (Late st Contact Info) Description 02/12/2025 9:00 AM ENGINEERING TEST SPECIALIST Office Visit [facility] Family & Internal Medicine - [address] [phone] Shan Edward DO [address] [place] [phone] 02/17/2025 8:20 AM ENGINEERING TEST SPECIALIST Office Visit [facility] Multispecialty Care - [facility] [address] [place] [address] Donell Farrell DO [address] [place] [address] documented as of this encounter Visit Diagnoses Not on filedocumented in this encounter Additional Health Concerns Infection Onset Date Last Indicated Resolved Time COVID-19 Rule Out 04/25/2021 04/26/2021 05/02/2021 12:32 AM ENGINEERING TEST SPECIALIST COVID-19 Confirmed 04/26/2021 04/26/2021 12:32 AM ENGINEERING TEST SPECIALIST COVID-19 Rule Out 03/13/2022 03/13/2022 03/14/2022 3:20 PM ENGINEERING TEST SPECIALIST COVID-19 Rule Out 03/08/2023 03/08/2023 03/08/2023 2:39 PM ENGINEERING TEST SPECIALIST COVID-19 Rule Out 03/08/2023 03/08/2023 03/09/2023 6:19 PM ENGINEERING TEST SPECIALIST COVID-19 Rule Out 05/07/2023 05/07/2023 05/07/2023 12:10 PM ENGINEERING TEST SPECIALIST COVID-19 Rule Out 05/07/2023 05/07/2023 05/09/2023 1:13 AM ENGINEERING TEST SPECIALIST COVID-19 Confirmed 05/07/2023 05/07/2023 12:32 AM ENGINEERING TEST SPECIALIST COVID-19 Rule Out 05/20/2024 05/20/2024 05/20/2024 3:42 PM ENGINEERING TEST SPECIALIST Influenza - Seasonal 05/20/2024 05/20/2024 025 12:33 AM ENGINEERING TEST SPECIALIST Respiratory Rule Out 09/04/2024 09/04/2024 025 11:01 AM CDT Assessment Noted Time PHQ-9 Depression Total Score: 1 11/26/19 20 1:07 PM CDT documented as of this encounter Care Teams City Carrier Assistant Relationship Specialty Start Date End Date Shan Edward DO [address] [place] [id number] PCP - General FAMILY PRACTICE 02/01/18 documented as of this encounter
--- OUTSIDE RECORDS SUMMARY | 2024-10-16 15:22 | XMS_ITS | Clinical Summary ---
Author Organization [facility] Address [address] [place] [address] Care Team Providers Care Licensed Architect Name Role Phone [email or web address] Shan Arden VICENTE Primary Care Provider + Allergies No known active allergies Medications multivitamin tablet Take 1 tablet by mouth daily. Active acetaminophen 500 MG tablet Take 1 tablet (500 mg total) by mouth every 6 (six) hours as needed for Pain. Active SYRINGE-NEEDLE, DISP, 3 ML 25G X 5/8 3 ML Misc USE FOR B12 INJECTIONS EVERY 2 WEEKS 09/04/19 20 Active Cholecalciferol 50 MCG (2000 UT) Cap Take 2,000 Units by mouth daily. Active albuterol (PROVENTIL) (2.5 MG/3ML) 0.083% nebulizer solutionIndication s:Mild intermittent asthma without complication (HHS/HCC) INHALE 1 VIAL VIA NEBULIZER EVERY 6 HOURS NEEDED FOR WHEEZING 375 mL 03/08/20 23 Active cyanocobalamin (B-12) 1000 MCG/ML injection 6 mLs (6,000 mcg total). 09/27/19 24 Active cetirizine (ZYRTEC ALLERGY) 10 MG tablet Take 1 tablet (10 mg total) by mouth daily. Active metFORMIN (GLUCOPHAGE) 1000 MG tabletIndications: Type 2 diabetes mellitus without complication, without long-term current use of insulin (CMS/HCC HHS/HCC) Take 0.5 tablets (500 mg total) by mouth daily with breakfast. 45 tablet 1 01/02/20 24 Active EPINEPHrine 0.3 MG/0.3ML injection Inject 0.3 mLs (0.3 mg total) into the muscle as needed. 10/16/20 24 Active rizatriptan (MAXALT-ELECTRICAL INSTRUMENT TECHNICIAN) 10 MG disintegrating tabletIndications: Migraine without status migrainosus, not intractable, unspecified migraine type TAKE 1 TABLET (10 MG TOTAL) BY MOUTH NEEDED FOR MIGRAINE. MAY REPEAT IN 2 HOURS IF NEEDED TIMES ONE DOSE 18 tablet 05/16/19 25 Active BREZTRI AEROSPHERE 160-9-4.8 MCG/ACT inhalerIndications :Mild persistent asthma with exacerbation (HHS/HCC) INHALE 2 PUFFS INTO THE LUNGS TWICE DAILY 32.1 g 06/14/19 25 Active Albuterol-Budesoni de (AIRSUPRA) 90-80 MCG/ACT AerosolIndications :Exacerbation of asthma, unspecified asthma severity, unspecified whether persistent (HHS/HCC) Inhale 2 puffs into the lungs every 4 (four) hours as needed (Wheezing/SOB). Two inhalations every 20 minutes as needed for up to 3 doses (6 inhalations total); subsequently, may administer 2 inhalations every 1 to 4 hours as needed; if symptoms worsen or recur within 1 to 3 hours, this suggests further medical attention may be required 32.1 g 06/26/19 25 Active simvastatin (ZOCOR) 10 MG tabletIndications: Hyperlipidemia, unspecified hyperlipidemia type Take 1 tablet (10 mg total) by mouth nightly at bedtime. 30 tablet 2 08/21/19 25 Active OZEMPIC 1 mg/dose injection (PEN)Indications:T ype 2 diabetes mellitus without complication, without long-term current use of insulin (CMS/HCC HHS/HCC) INJECT 1MG UNDER THE SKIN ONCE A WEEK 9 mL 1 08/23/19 25 Active montelukast (SINGULAIR) 10 MG tablet 1 tablet Orally Once a day, at night for 90 days 08/15/19 25 Active Active Problems Problem Noted Date Diagnosed Date Hyperlipidemia, unspecified hyperlipidemia type 10/26/2022 Depression screening negative 05/23/2022 Patellar instability of left knee 02/10/2022 Overview (05/23/2022): Added automatically from request for surgery [id number] Impingement syndrome involvi ng patellar fat pad of left knee 10/25/2021 Overview (02/07/2022): Added automatically from request for surgery [id number] Vitamin B12 deficiency (non anemic) 08/11/2021 Acute pain of left knee 07/01/2021 Anemia 07/01/2021 Bronchitis 07/01/2021 Anosmia 06/18/2020 BMI 34.0-34.9,adult 11/26/2019 Mild intermittent asthma without complication (H /[facility]) 11/26/2019 Vitamin D deficiency 12/18/2018 Elevated liver enzymes 12/18/2018 Other iron deficiency anemia 03/05/2018 Diabetes mellitus ([facility]) 01/25/2018 Encounters Date Type Department Care Team Description 09/04/2024 8:40 AM CDT Telemedicine [facility] Internal [address] [address] Rosamaria Gil APNP URI (Pt had allergy injections last , and woke up Fri morning feeling feverish, itchy and congested. She began coughing 2 days ago. She had a fever yesterday of 103. ) 09/04/2024 Results Follow-Up [address] [address] Rosamaria Gil APNP CORONAVIRUS (COVID-19) INFLUENZA A & B ANTIGEN IA PANEL 09/04/2024 Travel 09/04/2024 MyChart Message Enc [address] [address] Shan Edward, DO Appointment Needed or Urgent Care? 08/14/2024 Results Follow-Up [address] [address] Shan Edward, DO HEMOGLOBIN, GLYCOSYLATED, FERRITIN, IRON SAT PANEL (IRON,IBC,%SAT), Additional followed-up results: 7 08/08/2024 9:00 AM CDT Office Visit [address] [address] Shan Edward DO Diabetes; Asthma 08/08/2024 Travel 08/07/2024 MyChart Message Enc [facility] Family & Internal Medicine - [address] [address] Shan Edward DO Labs 07/18/2024 9:40 AM CDT Office Visit [facility] - [address] [place] [address] Donell Farrell DO New Patient 07/18/2024 Travel from Last 3 Months Immunizations Immunization Administration Dates Next Due Influenza Adult (Generic) [...] Never Smokeless Tobacco: Never Tobacco Cessation:Counseling Given: No Alcohol Use Standard Drinks/Week Comments Not Currently [...] Sex Assigned at Female 03/11/2024 12:09 PM CONCAVING MACHINE OPERATOR Legal Sex Female 1:50 PM CDT Gender Identity Female 03/11/2024 12:09 PM CONCAVING MACHINE OPERATOR Sexual Orientation Not on file 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 on file Not on file Not on jose e Last Filed Vital Signs Vital Sign Reading Time Taken Comments Blood Pressure 100/60 08/08/2024 9:06 AM CDT Pulse 102 08/08/2024 9:06 AM CDT Temperature 36.8 C (98.2 F) 08/08/2024 9:06 AM CDT Respiratory Rate 16 08/08/2024 9:06 AM CDT Oxygen Saturation 98% 08/08/2024 9:06 AM CDT Inhaled Oxygen Concentration - - Weight 91 kg (200 lb 11.2 oz) 08/08/2024 9:06 AM CDT Height 167.6 cm (5' 6) 08/08/2024 9:06 AM CDT Body Mass Index 32.39 08/08/2024 9:06 AM CDT Plan of Treatment Upcoming Encounters Date Type Department Care Team (Late st Contact Info) Description 02/12/2025 9:00 AM CONCAVING MACHINE OPERATOR Office Visit [facility] Family & Internal Medicine - [address] [address] Shan Edward, [address] [address] 02/17/2025 8:20 AM CONCAVING MACHINE OPERATOR Office Visit [facility] - [facility] [address] [place] [address] Donell Farrell [address] [place] [address] Health Maintenance Due Date Last Done Comments Cervical Cancer Screening Pap with HPV Testing (Age 30 to 64) Every 5 Years 2016 Cervical Cancer Screening Pap Smear (Age 30 to 64) Every 3 Years 11/03/2023 11/02/2020, 10/31/2019, 08/07/2018 Diabetes: Retinopathy Eye Exam 11/25/2023 11/24/2021, 07/11/2018 Annual Physical 02/08/2024 02/07/2023 Hepatitis B Vaccines (1 of 3 - 19+ 3-dose series) 01/01/2025 Postponed from 2005 (Patient/Guardian Refusal) Hemoglobin A1C 02/08/2025 08/08/2024, 07/2024, 01/02/2024, Additional history exists Kidney Health Evaluation 08/08/2025 08/08/2024 Lipid Panel 08/08/2025 08/08/2024, 10/2022, 02/03/2022, Additional history exists Pneumococcal Vaccine: Pediatrics (0 to 5 Years) and At-Risk Patients (6 to 49 Years) (2 of 2 - PCV) 08/08/2025 11/26/2019 Postponed from 11/25/2020 (Patient Refused) DTaP, Tdap and Td Vaccines (2 - Td or Tdap) 11/11/2025 11/12/2015 Cervical Cancer Screening with HPV 01/31/2027 Postponed from 11/03/2023 (Going to Outside Clinic) COVID-19 Vaccine ( season) 2112 08/19/2020, 07/29/2020 Postponed from 12/02/2023 (Going to Outside Clinic) Hepatitis C Completed 02/07/2023 PHQ-2 (Physician [place]) Completed 05/06/2024 HPV Vaccines Aged Out No [...] Procedure Name Priority Date/Time Associated Diagnosis Comments CORONAVIRUS (COVID-19) INFLUENZA A & B ANTIGEN IA PANEL Routine 09/04/2024 Nasal congestion Fever, unspecified fever cause VITAMIN D, 25 OH Routine 08/08/2024 11:3 4 AM CDT Annual physical exam Screening for endocrine, metabolic and immunity disorder Screening for lipid disorders Vitamin D deficiency ALBUMIN URINE RANDOM W/CREATININE Routine 08/08/2024 11:34 AM CDT Type 2 diabetes mellitus without complication, without long-term current use of insulin ([facility] HHS/[facility]) Annual physical exam Screening for endocrine, metabolic and immunity disorder Screening for lipid disorders CBC W/DIFF AUTOMATED Routine 08/08/2024 11:34 AM CDT Annual physical exam Screening for endocrine, metabolic and immunity disorder Screening for lipid disorders COMPREHENSIVE METABOLIC PANEL Routine 08/08/2024 11:34 AM CDT Annual physical exam Screening for endocrine, metabolic and immunity disorder Screening for lipid disorders TSH W/REFLEX Routine 08/08/2024 11:34 AM CDT Annual physical exam Screening for endocrine, metabolic and immunity disorder Screening for lipid disorders LIPID PANEL Routine 08/08/2024 11:34 AM CDT Annual physical exam Screening for endocrine, metabolic and immunity disorder Screening for lipid disorders VITAMIN B-12 Routine 08/08/2024 11:34 AM CDT Vitamin B12 deficiency (non anemic) IRON SAT PANEL (IRON,IBC,%SAT) Routine 08/08/2024 11:34 AM CDT Iron deficiency anemia, unspecified iron deficiency anemia type FERRITIN Routine 08/08/2024 11:34 AM CDT Iron deficiency anemia, unspecified iron deficiency anemia type COLLECTION VENOUS BLOOD VENIPUNCTURE Routine 08/08/2024 9:44 AM CDT Vitamin B12 deficiency (non anemic) COLLECT.CAPILLARY (FNGR,HEEL,EAR) Routine 08/08/2024 9:02 AM CDT Type 2 diabetes mellitus without complication, without long-term current use of insulin ([facility]/HCC HHS/[facility]) HEMOGLOBIN, GLYCOSYLATED Routine 08/08/2024 Type 2 diabetes mellitus without complication, without long-term current use of insulin ([facility] HHS/[facility]) HEPATITIS C ANTIBODY Routine 02/07/2023 9:49 AM CONCAVING MACHINE OPERATOR Encounter for preventative adult health care examination Screening for lipid disorders Screening for endocrine, metabolic and immunity disorder Need for hepatitis C screening test DIABETIC RETINOPATHY EXAM (NEGATIVE)(SCAN ORDER) Routine 11/24/2021 OUTSIDE CYTOPATH CERV/VAG INTERPRET (PAP) (SCAN ORDER) 11/02/2020 from Last 3 Months or Most Recently Relevant to Health Maintenance Results * CORONAVIRUS (COVID-19) INFLUENZA A & B ANTIGEN IA PANEL (09/04/2024) Pathologist [facility] [place] CORONAVIRUS ANTIGEN IA NEGATIVE NEGATIVE [facility] INFLUENZA A NEGATIVE NEGATIVE [facility] INFLUENZA B NEGATIVE NEGATIVE [facility] Internal Control: VALID VALID [facility] NASAL STRUCTURE / Unknown 09/04/2024 Rosamaria REZA MICROBIOLOGY - GENERAL ORDE MATEUS Final Result Performing Organization Address [facility]/ZIP Co de Phone Number [facility] [address] [place] [address], * TSH W/REFLEX (08/08/2024 11:34 AM CDT) Pathologist [facility] [place] TSH 1.165 0.358 - 3.740 uIU/ML 08/08/2024 3:37 PM CDT [facility] 08/08/2024 11:3 4 AM CDT Shan Edward DO LABORATORY Final Re sult Performing Organization Address City/[facility]/ZIP Co de Phone Number [facility] [address] [place] [address], [place] [phone] * IRON SAT PANEL (IRON,IBC,%SAT) (08/08/2024 11:34 AM CDT) [facility] IRON 53 50 - 170 MCG/DL 08/08/2024 3:37 PM CDT [facility] IRON BINDING CAPACITY 391 250 - 450 MCG/DL 08/08/2024 3:37 PM CDT [facility] IRON SATURATION 14 % 3:37 PM CDT [facility] Comment:REFERENCE RANGE NOT ESTABLISHED 08/08/2024 11:3 4 AM CDT Shan Edward DO LABORATORY Final Re sult Performing Organization Address [facility]/ZIP Co de Phone Number [address] [address], [place] [phone] * VITAMIN B-12 (08/08/2024 11:34 AM CDT) VITAMIN B12 S/P/B 496 193 - 986 PG/ML 08/08/2024 3:37 PM CDT [facility] 08/08/2024 11:3 4 AM CDT Shan Edward DO LABORATORY Final Re sult Performing Organization Address [facility] Co de Phone Number [address] [address], [place] [phone] * ALBUMIN URINE RANDOM W/CREATININE (08/08/2024 11:34 AM CDT) MICROALBUMIN (U) 4.0 <20 MG/L 08/09/19 25 3:23 PM CDT [facility] CREATININE RANDOM (U) 42.9 MG/DL 08/08/2024 3:23 PM CDT [facility] ALBUMIN/CREAT RATIO 9.3 <30 MG/G 08/08/2024 3:23 PM CDT [facility] URINE SPECIMEN / Unknown 08/08/2024 11:34 AM CDT Shan Edward DO URINE ORDERABLES Final R esult -[facility] JOSE GLENCOE [address] [place] [address], * COMPREHENSIVE METABOLIC PANEL (08/08/2024 11:34 AM CDT) [facility] SODIUM S/P/B 140 136 - 145 MMOL/L 08/08/2024 3:37 PM CDT [facility] POTASSIUM S/P/B 4.4 3.5 - 5.1 MMOL/L 08/08/2024 3:37 PM CDT -[facility] CHLORIDE S/P/B 105 98 - 107 MMOL/L 08/08/2024 3:37 PM CDT -[facility] CO2 27.4 21 - 32 MMOL/L 08/08/2024 3:37 PM CDT -[facility] GLUCOSE 97 70 - 99 MG/DL 08/08/2024 3:37 PM CDT -[facility] BUN 9 7 - 18 MG/DL 08/08/2024 3:37 PM CDT -[facility] CREATININE S/P/B 0.76 0.55 - 1.02 MG/DL 08/08/2024 3:37 PM CDT -[facility] CALCIUM S/P/B 9.1 8.4 - 10.5 MG/DL 08/08/2024 3:37 PM CDT [facility] BILIRUBIN TOTAL S/P/B 0.4 0.2 - 1.0 MG/DL 08/08/2024 3:37 PM CDT -[facility] ALKALINE PHOSPHATASE S/P/B 94 37 - 98 U/L 08/08/2024 3:37 PM CDT -[facility] AST 28 15 - 37 U/L 08/08/2024 3:37 PM CDT -[facility] ALT 46 14 - 59 U/L 08/08/2024 3:37 PM CDT -[facility] TOTAL PROTEIN S/P/B 7.3 6.4 - 8.2 G/DL 08/08/2024 3:37 PM CDT [facility] ALBUM[facility] S/P/B 3.7 3.4 - 5.0 G/DL 08/08/2024 3:37 PM CDT [facility] ANION GAP 7.6 5 - 15 MMOL/L 08/08/2024 3:37 PM CDT [facility] Comment:REFERENCE RANGE NOT ESTABLISHED OSMOLALITY (CALC) 289 MOSM/KG 025 3:37 PM CDT [facility] Comment:REFERENCE RANGE NOT ESTABLISHED GFR ESTIMATE >90 >90 ML/MIN/1. 73 M2 08/08/2024 3:37 PM CDT [facility] GFR NOTES GFR REFERENCE S: 08/08/2024 3:37 PM CDT [facility] Comment: THE ESTIMATED GFR IS CALCULATED USING THE 2020 CKD-EPI EQUATION. THE FOLLOWING CATEGORIES FOR GRADING RENAL FUNCTION ARE RECOMMENDED BY THE INTERNATIONAL SOCIETY OF NEPHROLOGY (KDIGO 2012 CLINICAL PRACTICE GUIDELINE). G1,NORMAL OR HIGH: >89 ml/min/1.73 m2 G2,MILDLY DECREASED: 60-89 ml/min/1.73 m2 G3A,MILDLY TO MODERATELY DECREASED: 45-59 ml/min/1.73 m2 G3B,MODERATELY TO SEVERELY DECREASED: 30-44 ml/min/1.73 m2 G4,SEVERELY DECREASED: 15-29 ml/min/1.73 m2 G5,KIDNEY FAILURE: <15 ml/min/1.73 m2 08/08/2024 11:3 4 AM CDT us Shan Edward DO LABORATORY Final Re sult [facility] [address] [place] [address], [place] [phone] * (ABNORMAL) LIPID PANEL (08/08/2024 11:34 AM CDT) CHOLESTEROL 202(H) <200 MG/DL 08/08/2024 3:37 PM CDT [facility] TRIGLYCERIDES 44 <150 MG/DL 08/08/2024 3:37 PM CDT [facility] HDL 97 >40 MG/DL 08/08/2024 3:37 PM CDT [facility] LDL-C 96 <100 MG/DL 08/08/2024 3:37 PM CDT [facility] VLDL CALCULATION 9 5 - 28 MG/DL 08/08/2024 3:37 PM CDT [facility] CHOL/HDL RATIO 2.1 0.0 - 4.0 08/08/2024 3:37 PM CDT [facility] LDL/HDL 1.0 0.41 - 2.13 08/08/2024 3:37 PM CDT [facility] NON HDL CHOLESTEROL 105 <140 MG/DL 08/08/2024 3:37 PM CDT [facility] 08/08/2024 11:3 4 AM CDT Shan Edward DO LABORATORY Final Re sult [facility] [address] [place] [address], * (ABNORMAL) CBC W/DIFF AUTOMATED (08/08/2024 11:34 AM CDT) WBC 5.33 4.00 - 10.80 x10'3/uL 08/08/2024 3:00 PM CDT [facility] RBC 4.11 4.10 - 5.40 x10'6/uL 08/08/2024 3:00 PM CDT [facility] HGB 12.5 12.0 - 16.0 G/DL 08/08/2024 3:00 PM [facility] HCT 39.4 36.0 - 47.0 % 08/08/2024 3:00 PM CDT [facility] MCV 95.9 78.0 - 100.0 FL 08/08/2024 3:00 PM CDT [facility] MCH 30.4 27.0 - 31.0 PG 08/08/2024 3:00 PM CDT [facility] MCHC 31.7(L) 33.0 - 36.0 G/DL 08/08/2024 3:00 PM CDT [facility] RDW 12.2 11.5 - 14.5 % 08/08/2024 3:00 PM CDT [facility] PLT 229 150 - 350 x10'3/uL 08/08/2024 3:00 PM CDT [facility] MPV 10.6(H) 7.4 - 10.4 FL 08/08/2024 3:00 PM CDT [facility] DIFFERENTIAL TYPE AUTOMATED DIFFERENTIAL 08/08/2024 3:00 PM CDT [facility] NEUTROPHILS % 59.8 % 08/08/2024 3:00 PM CDT [facility] LYMPHOCYTES % 28.3 % 08/08/2024 3:00 PM CDT [facility] MONOCYTES % 9.0 % 08/08/2024 3:00 PM CDT [facility] EOSINOPHILS % 2.3 % 08/08/2024 3:00 PM CDT [facility] BASOPHILS % 0.4 % 08/08/2024 3:00 PM CDT [facility] IMMATURE GRANS % 0.2 % 08/08/2024 3:00 PM CDT [facility] ABS. NEUTROPHILS 3.19 1.60 - 8.30 x10'3/uL 08/08/2024 3:00 PM CDT [facility] ABS. LYMPHOCYTES 1.51 0.80 - 4.70 x10'3/uL 08/08/2024 3:00 PM CDT [facility] ABS. MONOCYTES 0.48 0.00 - 1.50 x10'3/uL 08/08/2024 3:00 PM CDT [facility] ABS. EOSINOPHILS 0.12 0.00 - 0.40 x10'3/uL 08/08/2024 3:00 PM CDT [facility] ABS. BASOPHILS 0.02 0.00 - 0.20 x10'3/uL 08/08/2024 3:00 PM CDT [facility] ABS. IMMATURE GRANULOCYTES 0.01 0.00 - 0.03 x10'3/uL 08/08/2024 3:00 PM CDT [facility] 08/08/2024 11:3 4 AM CDT Shan Edward LABORATORY Final Re sult Performing Organization Address City/[facility]/ZIP Co de Phone Number [facility] [address] [place] [address], [place] [phone] * VITAMIN D, 25 OH (08/08/2024 11:34 AM CDT) VITAMIN D 25 HYDROXY TOTAL S/P/B 37.7 30 - 100 NG/ML 08/08/2024 3:37 PM CDT [facility] Comment: DEFICIENT <20 INSUFFICIENT 20-30 SUFFICIENT 30-100 08/08/2024 11:3 4 AM CDT Shan Edward LABORATORY Final Re sult Performing Organization Address City/[facility]/ZIP Co de Phone Number [facility] [address] [place] [address], [place] [phone] * (ABNORMAL) FERRITIN (08/08/2024 11:34 AM CDT) Pathologist [facility] [place] FERRITIN 7.0(L) 8 - 252 NG/ML 08/08/2024 3:37 PM CDT [facility] 08/08/2024 11:3 4 AM CDT Shan Edward DO LABORATORY Final Re sult Performing Organization Address City/[facility] Co de Phone Number [facility] [address] [place] [address], [place] [phone] * HEMOGLOBIN, GLYCOSYLATED (08/08/2024) Pathologist [facility] [place] HGB A1C 5.9 % [facility] 08/08/2024 Shan Edward DO LABORATORY Final Re sult Performing Organization Address [facility] Co de Phone Number [facility] [address] [place] [address], [place] * HEPATITIS C ANTIBODY ([facility]) (02/07/2023 9:49 AM CONCAVING MACHINE OPERATOR) [facility] HEPATITIS C AB NON-REACTI VE NON-REACT MARCELINO 02/07/2023 6:52 PM CONCAVING MACHINE OPERATOR [facility] Comment: ANTIBODIES TO HCV NOT DETECTED. DOES NOT EXCLUDE THE POSSIBILITY OF EXPOSURE TO HCV. 02/07/2023 9:49 AM CONCAVING MACHINE OPERATOR Shan Arden Edward DO LABORATORY Final Re sult Performing Organization Address City/[facility] Co de Phone Number [facility] [address] [place] [address], [place] [phone] * DIABETIC RETINOPATHY EXAM (NEGATIVE)(SCAN) (11/24/2021) us Documents Scanned SCANNING Final Result Performing Organization Address City/[facility] Co de Phone Number [facility] * OUTSIDE CYTOPATH CERV/VAG INTERPRET (PAP) (11/02/2020) 11/02/2020 Narrative 11/02/2020 Ordered by an unspecified provider. us Documents Scanned SCANNING Final Result from Last 3 Months or Most Recently Relevant to Health Maintenance Insurance [employer] Care Teams Licensed Architect Relationship Specialty Start Date End Date Shan Edward DO [facility] [place] [address] PCP - General FAMILY PRACTICE 02/01/18
--- OUTSIDE RECORDS SUMMARY | 2024-10-16 15:22 | XMS_ITS | Clinical Summary ---
Author Organization [facility] Address [address] [facility] [place] [address] Care Team Providers Care Customer Professional Name Role Phone Shan Edward DO Primary Care Provider + Allergies No known active allergies Medications metFORMIN (GLUCOPHAGE) 1,000 mg tablet Active multivitamin (DAILY-SHANNAN) tablet Take 1 Tablet [...] NEEDED FOR SHORTNESS OF BREATH OR WHEEZING Active fluticasone furoate-vilante roL (BREO ELLIPTA) 100-25 mcg/dose Disk with Device Take 1 Puff by inhalation. Active cholecalciferol , vitamin D3, 1,000 unit Take 1,000 Units by mouth. Active budesonide (PULMICORT RESPULE) 0.5 mg/2 mL Suspension for Nebulization Administer 0.5 mg in each nostril 2 times daily. Active Ozempic 0.25 mg or 0.5 mg(2 mg/1.5 mL) Pen Injector INJECT 0.5 MG INTO THE SKIN EVERY 7 DAYS. Active Breztri Aerosphere 160 mcg-9mcg-4.8mcg /actuation HFA aerosol inhaler Take 2 Puffs by inhalation 2 times daily. 024 Active Syringe with Needle, Disp, (BD Luer-Carlos Syringe) 3 mL 25 x 5/8 SyringeIndicati ons:Vitamin B12 deficiency (non anemic) USE FOR B12 INJECTIONS EVERY 2 WEEKS Strength: 3 mL 25 x 5/8 2 Each 2 025 Active cyanocobalamin (VITAMIN B-12) 1,000 mcg/mL SolutionIndicat ions:Iron deficiency anemia, unspecified iron deficiency anemia type INJECT 1 ML (1,000 MCG) BY INTRAMUSCULAR INJECTION EVERY 2 WEEKS. 2 mL 2 025 Active cyanocobalamin (VITAMIN B-12) 1,000 mcg/mL SolutionIndicat ions:Iron deficiency anemia, unspecified iron deficiency anemia type Inject 1 mL (1,000 mcg) by intramuscular injection every 2 weeks. 2 mL 2 025 2024 Discontinued Active Problems Problem Noted Date Diagnosed Date Vitamin B12 deficiency (non anemic) 08/11/2021 Iron deficiency anemia 04/23/2018 Encounters Date Type Department Care Team Description 10/16/2024 Telephone [facility] Oncology and Hematology - [place] [address] [place] [address] Joe Lopez MD Fatigue 10/14/2024 External Device Data STL ABSTRACTION Provider, Abstract 10/08/2024 Refill [facility] Oncology and Hematology - [place] [address] [place] [address] Joe Lopez MD Iron deficiency anemia, unspecified iron deficiency anemia type 09/23/2024 External Device Data STL ABSTRACTION Provider, Abstract 09/16/2024 External Device Data STL ABSTRACTION Provider, Abstract 08/21/2024 External Device Data STL ABSTRACTION Provider, Abstract 08/19/2024 External Device Data STL ABSTRACTION Provider, Abstract [...] on file Legal Sex Female 8:[address] Gender Identity Not on file Sexual Orientation Not on file Last Filed Vital Signs Vital Sign Reading Time Taken Comments Blood Pressure 122/65 06/30/2024 1:08 PM CDT Pulse 99 06/30/2024 1:08 PM CDT Temperature 36.3 C (97.4 F) 06/30/2024 1:08 PM CDT Respiratory Rate 16 06/30/2024 1:08 PM CDT Oxygen Saturation 95% 06/30/2024 1:08 PM CDT Inhaled Oxygen Concentration - - Weight 89.4 kg (197 lb) 06/30/2024 1:08 PM CDT Height 167.6 cm (5' 6) 09/22/2021 1:02 PM CDT Body Mass Index 31.8 09/22/2021 1:02 PM CDT Plan of Treatment Upcoming Encounters Date Type Department Care Team (Late st Contact Info) Description 10/30/2024 11:30 AM CDT Office Visit [facility] Oncology and Hematology - [place] [address] [facility] [address] [place] [address] Joe Lopez MD [address] [facility] [address] [place] [address] Health Maintenance Due Date Last Done Comments HPV VACCINES (1 - 3-dose series) 2001 DIABETES ANNUAL FOOT EXAM 2004 DIABETES ANNUAL RETINAL EXAM 2004 DIABETES MICROALBUMIN ANNUAL SCREEN 2004 LDL CHOLESTEROL ANNUAL 2004 HEPATITIS B VACCINES (1 of 3 - 19+ 3-dose series) 2005 HPV/Cotest (21-29) 10/06/2007 CERVICAL CANCER SCREENING 2016 HPV/Cotest (30-65) 2016 PAP SMEAR 2016 Preventative Visit- Commercial 04/02/2024 02/07/2023 , 06/22/2017 INFLUENZA VACCINE (#1) 2024 01/01/2019, 2017 DIABETES HBA1C Q 6 MONTHS 11/03/20242024, 01/02/2024, 09/06/2023, Additional history exists DTAP/TDAP/TD VACCINES (2 - T d or Tdap) 11/11/2025 11/12/2015 [place] [address] [employer] CHOICE POS II [facility] [place] [address] [employer] CHOICE POS II Care Teams Customer Professional Relationship Specialty Start Date End Date Shan Edward DO [address] [place] [phone] PCP - General Family Practice 08/17/22
--- OUTSIDE RECORDS SUMMARY | 2024-10-16 15:22 | XMS_ITS | Encounter Summary ---
Author Organization [facility] [employer] [facility] Address [address] [place] [address] Care Team Providers Care Information Operator Name Role Phone Shan Edward DO Primary Care Provider + Reason for Visit * Reason Onset Date Comments Fatigue 10/16/2024 Encounter Details Date Type Department Care Team (Late st Contact Info) Description 10/16/2024 Telephone [facility] Oncology and Hematology - [place] [address] 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 She is always tired, eating and craving ice chipsall the time. She said this is her normal whenever she is low on her iron. She is wanting to know if she can get her labs done. I let her know that she could get her labs done anytime and I would look for the results so maybe we could get her iron started before he follow up. I let her know we would still want her to keep her appointment on 10/[address] Lopez. She verbalized understanding with no further questions at this time. She will get her labs done today. documented in this encounter Plan of Treatment Upcoming Encounters Date Type Department Care Team (Late st Contact Info) Description 10/30/2024 11:30 AM CDT Office Visit [facility] Oncology and Hematology - [place] [address] [facility] [address] [place] [address] Joe Lopez MD [address] [facility] [address] [place] [address] documented as of this encounter Visit Diagnoses Not on filedocumented in this encounter Care Teams Information Operator Relationship Specialty Start Date End Date Shan Edward DO [address] [place] [phone] PCP - General Family Practice 08/17/22 documented as of this encounter
--- OUTSIDE RECORDS SUMMARY | 2024-10-16 15:22 | XMS_ITS | Encounter Summary ---
Author Organization [facility] Address [facility] [place] [address] Care Team Providers Care Automatic Spinning Lathe Operator Name Role Phone Shan Edward DO Primary Care Provider + Encounter Details Date Type Department Care Team (Late Contact Info) Description 09/04/2024 Results Follow-Up [facility] Family & Internal Medicine - [place] [address] [place] [address] Rosamaria Gil APNP [address] [place], [place] [id number] CORONAVIRUS (COVID-19) INFLUENZA A & B ANTIGEN IA PANEL Social History Tobacco Use Types Packs/Day Years [...] Sex Assigned at Female 03/11/2024 12:09 PM CORD SPLICER Legal Sex Female 1:50 PM CDT Gender Identity Female 03/11/2024 12:09 PM CORD SPLICER Sexual Orientation Not on file 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 Not on file Not on file Not on jose e documented as of this encounter Plan of Treatment Upcoming Encounters Date Type Department Care Team (Late st Contact Info) Description 02/12/2025 9:00 AM CORD SPLICER Office Visit [facility] Family & Internal Medicine - [place] [address] [place] [address] Shan Edward DO [address] [place] [address] 02/17/2025 8:20 AM CORD SPLICER Office Visit [facility] Multispecialty Care - [facility] [address] [place] [address] Donell Farrell DO [address] [place] [address] documented as of this encounter Visit Diagnoses Not on filedocumented in this encounter Additional Health Concerns Infection Onset Date Last Indicated Resolved Time Respiratory Rule Out 09/04/2024 09/04/2024 025 11:01 AM CDT Assessment Noted Time PHQ-9 Depression Total Score: 1 05/23/19 23 1:37 PM CORD SPLICER documented as of this encounter Care Teams Automatic Spinning Lathe Operator Relationship Specialty Start Date End Date Shan Edward DO [address] [place] [address] PCP - General FAMILY PRACTICE 02/01/18 documented as of this encounter
--- OUTSIDE RECORDS SUMMARY | 2024-10-16 15:23 | XMS_ITS ---
Author Organization [facility] [place] ([address]) Address [address] [place] [address] Care Team Providers Care Sommelier Name Role Phone CheyanneShan Primary Care Provider Jeanette Peace Unavailable [phone] Abraham Lamar Unavailable [phone] REASON FOR VISIT SCIT - Traditional Schedule Allergy immunotherapy Social History Sex Assigned At : Social History Observation Description Sex Assigned At Female Encounters Encounter Location Date Provider Diagnosis [facility] [place] [address] [place] [address] 10/09/2024 Abraham Lamar Allergic rhinitis du e to pollen J30.1 ; Allergic rhinitis due to animal (cat) (dog) hair and dander J30.81 ; Other allergic rhinitis J30.89 and Other chronic allergic conjunctivitis H10.45 Assessments Encounter Date Diagnosis (ICD Code) Assessment Notes Treatment Notes Treatment Clinical Notes Section Notes 10/09/2024 Allergic rhinitis due to pollen (ICD-10 - J30.1) 10/09/2024 Allergic rhinitis due to animal (cat) (dog) hair and dander (ICD-10 - J30.81) 10/09/2024 Other allergic rhinitis (ICD-10 - J30.89) 10/09/2024 Other chronic allergic conjunctivitis (ICD-10 - H10.45) Plan Of Treatment Next Appt Details Follow Up: 1 Week, Reason: Provider Name:Abraham Lamar , 10/16/2024 05:00:00 PM, [address] [facility], [address], [place], [address], Provider Name:Abraham WaggonerManuel Lamar , 10/23/2024 05:00:00 PM, [address] [facility], [address], [place], [address], Provider Name:Pippa Hutchison rashi, 11/10/2024 01:30:00 PM, [address] [facility], [address], [place], [address], Progress Notes * Danielle MACKOB:1985 (39 yo F)Acc No.[id number]:10/09/2024 SCIT-Aeroallergen Patient: Abdirizak RUSSELL Provider: Arden Lamar MD :1985 A ge:39 Y S ex:Female Date:10/09/2024 [address] Pcp:Shan Edward Subjective: * Chief Complaints: * 1 . SCIT - Traditional Schedule Allergy immunotherapy. * HPI: * Introduction: The patient is here for scheduled immunotherapy. Please see the attached specialty form regarding the specifics of the administration of these vaccines. As per our protocol, they must undergo a screening health questionnaire (medication changes, reaction(s) to last immunotherapy dose(s), current health status, ACT (if appropriate), self-injectable epinephrine on patient(?) and peak flow (if appropriate)). Also, the patient must wait in our office for 30 minutes after receiving the vaccine(s). Furthermore, every patient must have an epinephrine pen (self-injectable) with them at the time of administration--and carry if for the following 1.5 hours after they leave our office. The patient must also have taken their antihistamine the day of the injection, preferably 2 hours prior. The consent form for SCIT (subcutaneous immunotherapy) is on file. * Medical History: Objective: * Vitals: Assessment: * Assessment: 1. A llergic rhinitis due to pollen - J30.1 (Primary) 2 . A llergic rhinitis due to animal (cat) (dog) hair and dander - J30.81 3 . O ther allergic rhinitis - J30.89 4 . O ther chronic allergic conjunctivitis - H10.45 Plan: * Treatment: * Preventive Medicine: Counseling: E xercise A void heavy lifting on days of allergy immunotherapy. M edication instruction: I njectable epinephrine education and instruction w/ discussion of signs and symptoms of anaphylaxis and reasons to seek urgent or emergent care, Watch for side effects of prescribed medications. E ducation: A ble to return demonstration of self-injectable epinephrine. * Follow Up: 1 Week * Billing Information: * Visit Code: * Procedure Codes: 78151 IMMUNOTHERAPY INJECTIONS. * Electronic signature of Dottie Lamar MD, FAAAAI on 10/16/2024 at 03:23 PM CDT Sign off status: Pending * Provider: Arden Lamar MD Date: 10/09/2024 Generated for Allisoni destin/Scott/eTransmitting on: 10/16/2024 03:23 PM CDT History and Physical Notes * HPI (History of Present Illness) Category Sub-Category Detail Notes Category Not es *Introduction The patient is here for scheduled immunotherapy. Please see the attached specialty form regarding the specifics of the administration of these vaccines. As per our protocol, they must undergo a screening health questionnaire (medication changes, reaction(s) to last immunotherapy dose(s), current health status, ACT (if appropriate), self-injectable epinephrine on patient(?) and peak flow (if appropriate)). Also, the patient must wait in our office for 30 minutes after receiving the vaccine(s). Furthermore, every patient must have an epinephrine pen (self-injectable) with them at the time of administration--and carry if for the following 1.5 hours after they leave our office. The patient must also have taken their antihistamine the day of the injection, preferably 2 hours prior. The consent form for SCIT (subcutaneous immunotherapy) is on file.
[2024-10-16 15:37] LABS: Hematocrit 37.4 % (37.0-47.0); Hemoglobin 11.9 g/dL (12.0-15.0); Mean Corpuscular HGB Conc 31.8 g/dl (32-36); Mean Corpuscular Hemoglobin 29.2 pg (26-34); Mean Corpuscular Volume 91.7 fl (80-100); Platelet Count Result 222 k/mm3 (150-375); Red Blood Count 4.08 M/mm3 (4.2-5.4); White Blood Count 6.9 K/mm3 (4.5-10.0)
[2024-10-16 20:28] LABS: Iron 82 ug/dL (37-170)
[2024-10-16 20:43] LABS: Percent Iron Saturation 18 % (20-50)
[2024-10-16 21:06] LABS: Ferritin 5.77 ng/mL (6.24-137)
[2024-10-16 21:34] LABS: Vitamin B12 781.0 pg/mL (239-931)
== END 2024-10-16 15:20 | disposition home or self-care (01) ==
PROVIDERS: PCP Student in an Organized Health Care Education/Training Program; Visit Provider Internal Medicine Hematology & Oncology
DX: D50.9 Iron deficiency anemia, unspecified (principal); E53.8 Deficiency of other specified B group vitamins
CPT/HCPCS: 36415; 82607; 82728; 82746; 83540; 83550; 85027

== ENCOUNTER 2025-01-09 08:14 | Outpatient (CLI) | payer OTHER, SELFPAY ==
--- NOTE | ~2025-01-09 | MR_ITS ---
EXAMINATION: MR cervical spine wo con DATE: 01/09/2025 08:40 INDICATION: Right shoulder pain. TECHNIQUE: Magnetic resonance imaging (MRI) of the cervical spine was performed without intravenous contrast. COMPARISON: None FINDINGS: There is 4 degrees levocurvature of cervical spine. Vertebral body heights are normal. Intervertebral disc heights are normal. The spinal cord signal intensity is normal. The following disc levels are specifically discussed: C2-C3: The disc does not extend beyond the endplate margin. There is no uncovertebral joint osteoarthritis. There is no facet joint osteoarthritis. There is no neural foraminal stenosis. There is no central canal stenosis. C3-C4: The disc does not extend beyond the endplate margin. There is mild right uncovertebral joint osteoarthritis. There is mild bilateral facet joint osteoarthritis. There is mild right neural foraminal stenosis. There is no central canal stenosis. C4-C5: The disc does not extend beyond the endplate margin. There is no uncovertebral joint osteoarthritis. There is no facet joint osteoarthritis. There is no neural foraminal stenosis. There is no central canal stenosis. C5-C6: The disc does not extend beyond the endplate margin. There is no uncovertebral joint osteoarthritis. There is no facet joint osteoarthritis. There is no neural foraminal stenosis. There is no central canal stenosis. C6-C7: The disc does not extend beyond the endplate margin. There is no uncovertebral joint osteoarthritis. There is no facet joint osteoarthritis. There is no neural foraminal stenosis. There is no central canal stenosis. C7-T1: The disc does not extend beyond the endplate margin. There is no uncovertebral joint osteoarthritis. There is mild bilateral facet joint osteoarthritis. There is no neural foraminal stenosis. There is no central canal stenosis. IMPRESSION: 1. Mild cervical spondylosis. Reviewed, dictated and finalized at location E.
== END 2025-01-09 08:15 | disposition home or self-care (01) ==
LOC: MICIMG 08:14
DX: M25.511 Pain in right shoulder (principal); M47.892 Other spondylosis, cervical region
CPT/HCPCS: 72141

== ENCOUNTER 2025-02-17 11:53 | Outpatient (CLI) | payer OTHER, SELFPAY ==
--- NOTE | ~2025-02-17 | MR_ITS ---
EXAM/PROCEDURE: MR shoulder RT wo con HISTORY: r shoulder pain COMPARISON: None available. TECHNIQUE: Multiplanar right shoulder MRI without contrast FINDINGS: No fracture subluxation or dislocation. Mild scattered osteoarthritic degenerative changes developing at the humeral head. Mild to moderate arthrosis at the AC joint present. No labral tear seen on this nonarthrographic series. No significant joint effusion. Mild hyperintense signal change in the due to distal supraspinatus tendon with slight contour irregularity along the bursal margin but no discrete full- thickness tear. No significant joint effusion. Mild hyperintense signal also present in the distal portion of the infraspinatus muscle and tendon as can be seen on images 10 through 14 of series 7 with slight contour irregularity along the articulating margin. No discrete or full- thickness tear seen. Subscapularis tendon and teres minor appear intact. Spinoglenoid recess and suprascapular notch regions appear normal. Long head biceps tendon intact within the bicipital groove. Superior labral attachment appears intact. IMPRESSION: Probably small partial-thickness tears involving the supraspinatus and infraspinatus tendons with mild strain or injury to the infraspinatus muscle as well. Reviewed, dictated and finalized at location A. CIRCUIT WORKER IMPRESSION: Probably small partial-thickness tears involving the supraspinatus and infraspi natus tendons with mild strain or injury to the infraspinatus muscle as well.
--- NOTE | ~2025-02-17 | MR_ITS ---
EXAM/PROCEDURE: MR scapula RT wo con HISTORY: r shoulder pain COMPARISON: Shoulder series same date TECHNIQUE: Multiplanar noncontrast enhanced MRI through about the right scapula. FINDINGS: The scapula including suprascapular notch and spinoglenoid recess regions appear within normal limits. No fracture or acute/aggressive bony or soft tissue lesion seen. No discrete mass or abnormal fluid collection. IMPRESSION: Normal appearance of the right scapula. See also right shoulder MRI same date. Reviewed, dictated and finalized at location A. Y POLISHER
== END 2025-02-17 11:54 | disposition home or self-care (01) ==
LOC: GOSHIMG 11:53
DX: M25.511 Pain in right shoulder (principal); M79.89 Other specified soft tissue disorders
CPT/HCPCS: 73218; 73221